=== PATIENT | female | born 1935 | race Caucasian/White ===

== ENCOUNTER 2018-12-31 08:15 | Inpatient (IN) | payer OTHER ==
[2018-12-25 14:48] VITALS: BMI 30.2
--- NOTE | 2018-12-31 07:28 | HP ---
History & Physical Update - History History: No Change - Physical Physical: No Change - Assessment Assessment: No Change - Plan Plan: No Change (Initial H&P is located in patient's paper chart. No new medications or complaints. Here today for elective L4/5 TLIF. (LBP with LLE neurogenic claudication))
[2018-12-31] MEDS ORDERED: CEFAZOLIN 2 GM/D5W 2 GM/50 ML ML IVPB ONE (09:35)
[2018-12-31] MEDS ORDERED: GABAPENTIN 300 MG CAPSULE (FP) PO STA (09:35)
[2018-12-31] MEDS ORDERED: oxyCODONE HCL 10 MG SUSTAINED ACTING TABLET PO STA (09:35)
[2018-12-31] MEDS ORDERED: GABAPENTIN 300 MG CAPSULE (FP) ONE (11:06)
[2018-12-31] MEDS ORDERED: THROMBIN (BOVINE) 5,000 UNIT VIAL TP ONE ×2 (11:29→14:01)
[2018-12-31] MEDS ORDERED: MIDAZOLAM HCL 2 MG/2 ML SINGLE DOSE VIAL ONE (12:23)
[2018-12-31] MEDS ORDERED: BUPIVACAINE HCL/PF 0.5% (5MG/ML) 10 ML VIAL ONE (12:57)
[2018-12-31] MEDS ORDERED: ONDANSETRON 4 MG/2 ML VIAL ONE ×2 (13:03→16:21)
[2018-12-31] MEDS ORDERED: SODIUM CHLORIDE 0.9% P/F 10 ML VIAL IJ ONE (13:03)
[2018-12-31] MEDS ORDERED: DEXAMETHASONE SOD PHOSPHATE 4 MG/1 ML VIAL ONE (13:03)
[2018-12-31] MEDS ORDERED: ceFAZolin SODIUM 1 GM VIAL ONE (13:03)
[2018-12-31] MEDS ORDERED: GELATIN SPONGE,ABSORBABLE 1 GM PACKET TP ONE (14:02)
[2018-12-31] MEDS ORDERED: ONDANSETRON 4 MG/2 ML VIAL IVPUSH PRN ×2 (15:02→16:01)
[2018-12-31] MEDS ORDERED: PROMETHAZINE HCL 25 MG/1 ML VIAL IVPUSH PRN (15:02)
--- NOTE | 2018-12-31 16:00 | OP ---
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
[2018-12-31] MEDS ORDERED: ACETAMINOPHEN 1000 MG/100 ML VIAL (NON FORMULARY) IVPB PRN (16:01)
--- NOTE | 2018-12-31 16:01 | SURG ---
Surgery Energy Project Engineer Note Energy Project Engineer: Rob Hinson PA-C Date of Service: 12/31/18 Diagnosis: L4/5 Spondylolithesis with radiculopathy Procedure: L4/5 Transforaminal lumbar interbody fusion / decompression / instrumentation, allograft implant, neuromonitoring I was present for the entirety of the operative procedure. For further detail, please refer to operative report. Visit type - Case Type Case Type: Scheduled - New patient This patient is new to me today: Yes Date on this admission: 12/31/18
[2018-12-31] MEDS ORDERED: ACETIC ACID 2% OTIC SOLN 15ML BOTTLE AD PRN (16:04)
--- NOTE | 2018-12-31 16:33 | OP ---
DATE OF OPERATION: 12/31/2018 PREOPERATIVE DIAGNOSES: Spondylolisthesis, L4-L5. Spinal stenosis, L4-L5. POSTOPERATIVE DIAGNOSES: Spondylolisthesis, L4-L5. Spinal stenosis, L4-L5. PROCEDURES PERFORMED: Transforaminal lumbar interbody fusion, L4-L5. Placement of instrumentation at L4-L5. Placement of a prosthetic cage. SURGEON: Zacarias Mc MD ACCOUNT TECHNICIAN: AARON Villafana ESTIMATED BLOOD LOSS: 50 mL. INTRAVENOUS FLUIDS: Per Anesthesia. ANESTHESIA: Spinal/TLIP. COMPLICATIONS: None. DISPOSITION: Patient brought to the PACU in stable condition. INDICATIONS FOR SURGERY: The patient is an 83-year-old female who has been suffering from pain from her back down the leg. X-rays and MRI were completed which noted that she has spinal stenosis at L4-L5 secondary to spondylolisthesis. She had gone through an exhaustive course of treatment for this, which included medications, physical therapy, as well as injections. Unfortunately, her pain continued to persist despite all this. At this point, the risks, benefits, and alternatives were discussed and the patient consented to surgery. OPERATIVE NOTE: The patient was brought to the operating room by the Anesthesia staff. After appropriate patient identification was performed, spinal anesthesia was given. A TLIP block was also given. The patient was able to position himself prone onto the Eliu frame with all areas of bony prominences well added at this time. The C-arm was brought in. The L4-L5 pedicles were marked out. Her back was prepped and draped in a sterile manner. At this point, a timeout was completed. An incision was made from the top of L4 down to the bottom of L5. Dissection was carried down to the fascia. The fascia was then split open at this time. Under C-arm guidance, trocars were advanced into both the L4-L5 pedicles. Through the trocars, a wire was inserted. Over the wire, tap was performed and screws inserted on the left-hand side. Retractor blades were then set up to expose the L4-5 facet. The facet joint was removed. The disk was entered. Using a series of pituitaries, Kerrisons and curettes, a discectomy was completed. The endpiece was decorticated at this time. Bone graft was laid down. A size 14 cage filled with bone graft was placed in. Tulip heads were placed on the screws. The julius was placed in. Caps and compression was applied. On the right-hand side, Julius was measured and placed in, the caps were placed. Compression was applied. AP and lateral x-rays confirmed the instrumentation to be in good position. The fascia was closed using a number-1 Vicryl suture. A drain was placed. Subcutaneous tissues were closed with 2-0 Vicryl suture. Skin was closed with 3 -0 Monocryl suture. Dermabond was applied. Steri-Strips were applied. A sterile dressing was applied. The patient was placed supine on the OR bed and brought to the PACU in stable condition. Chyna PARKER/[id number] MTDD
[2018-12-31 16:58] LABS: HEMATOCRIT 42.8 % (32.4-45.2); HEMOGLOBIN 14.1 GM/dl (10.7-15.3); MCH 30.5 pg (25.7-33.7); MEAN CELL VOLUME 92.3 fl (80-96); MEAN PLT VOLUME 9.7 fl (7.5-11.1); PLATELET COUNT 188 K/MM3 (134-434); RBC 4.64 M/mm3 (3.60-5.2); RDW 12.3 % (11.6-15.6); WHITE BLOOD COUNT 8.6 K/mm3 (4.0-10.8)
[2018-12-31] MEDS: LACTATED RINGERS SOLUTION 1,000 ML IV SCH (17:39)
[2018-12-31] MEDS: GABAPENTIN 300 MG CAPSULE (FP) PO SCH ×2 (17:40→21:36)
[2018-12-31] MEDS: ACETAMINOPHEN 325 MG TABLET (FP) PO SCH ×2 (17:41→21:36)
[2018-12-31] MEDS: CEFAZOLIN 1 GM/D5W 1 GM/50 ML BAG IVPB SCH (18:26)
[2018-12-31] MEDS: oxyCODONE HCL 5 MG TABLET PO PRN (20:01)
[2018-12-31] MEDS: ATORVASTATIN CA 40 MG TABLET (FP) PO SCH (21:36)
[2019-01-01] MEDS: CEFAZOLIN 1 GM/D5W 1 GM/50 ML BAG IVPB SCH ×2 (01:36→10:00)
[2019-01-01] MEDS: oxyCODONE HCL 5 MG TABLET PO PRN ×3 (01:43→19:50)
[2019-01-01] MEDS: ACETAMINOPHEN 325 MG TABLET (FP) PO SCH ×3 (04:30→17:56)
[2019-01-01] MEDS: GABAPENTIN 300 MG CAPSULE (FP) PO SCH ×3 (06:16→21:14)
[2019-01-01] MEDS: GLIMEPIRIDE 1 MG TABLET (FP) PO SCH (06:23)
[2019-01-01 07:26] LABS: HEMATOCRIT 40.3 % (32.4-45.2); HEMOGLOBIN 13.4 GM/dl (10.7-15.3); MCH 30.9 pg (25.7-33.7); MCHC 33.1 g/dl (32.0-36.0); MEAN CELL VOLUME 93.3 fl (80-96); MEAN PLT VOLUME 9.3 fl (7.5-11.1); PLATELET COUNT 183 K/MM3 (134-434); RBC 4.32 M/mm3 (3.60-5.2); RDW 12.1 % (11.6-15.6); WHITE BLOOD COUNT 12.6 K/mm3 (4.0-10.8)
[2019-01-01 07:36] LABS: ANION GAP 7 MMOL/L (8-16); BLOOD UREA NITROGEN 18 mg/dl (7-18); CALCIUM 8.6 mg/dl (8.5-10); CHLORIDE 101 mmol/L (98-107); CO2 28 mmol/L (21-32); CREATININE 0.8 mg/dl (0.55-1.3); GLUCOSE,RANDOM 177 mg/dl (74-106); POTASSIUM 4.3 mmol/L (3.5-5.1); SODIUM 136 mmol/L (136-145)
--- NOTE | 2019-01-01 08:17 | PN ---
Addendum entered and electronically signed by Rob Hinson PA 01/01/19 10:26: Per Dr. Mc, make patient NPO. Plans on taking patient back to OR today for revision of malpositioned hardware based upon CT findings. Original Note: Progress Note (short form) - Note Progress Note: POD #1 Alert. Sitting in chair at bedside. Patient's RN informs me that patient had a difficult time last night s/p surgery. Attempted to ambulate with walker but couldn't as she felt like her left leg was buckling. Daughter present and acted as interpreter for the deaf. Daughter confirmed what the RN stated. C/o a lot of pain to LLE. However, the numbness/tingling she was having prior too surgery is now gone. Denies n/v/f/c, CP, palpitations, SOB, LOZANO. Last Vital Signs Temp Pulse Resp BP Pulse Ox 97.8 F 78 18 122/73 95 01/01/19 06:00 01/01/19 06:00 01/01/19 06:00 01/01/19 06:00 01/01/19 06:54 CBC, BMP 01/01/19 07:10 01/01/19 07:10 Gen:alert. nad. Back: Dressing c/d/i. Hemovac 20mL (serosanguinous). Neuro: RLE unremarkable. LLE dorsi flex 4/5, plantar exten 4/5. Warm. Palpable DP/PT. SCDs bilat. Soft. NT. <Rob Hinson - Last Filed: 01/01/19 08:17> - Note Progress Note: Patient seen and examined Agree with above Patient noted to have pain in left leg along with weakness CT scan confirms medial placement of left L4 screw I had a long discussion with patient and daughter I recommended revision of hardware Patient and family in agreement. <Zacarias Mc - Last Filed: 01/02/19 09:18> Problem List - Problems (1) Spondylolisthesis at L4-L5 level Assessment/Plan: POD #1 s/p L4/5 TLIF/allograft implant/neuromonitoring under spinal anesthesia. C/o LLE pain and buckling while attempting to ambulate. f/u Lumbar CT scan Regular Diet Physical Therapy Pain Management Monitor/record hemovac ouput q shift Depending on PT eval, may need Rehab placement dc Patient not cleared for dc at this time Above plan discussed with Dr. Mc and agrees. Code(s): M43.16 - SPONDYLOLISTHESIS, LUMBAR REGION <Rob Hinson - Last Filed: 01/01/19 08:17>
[2019-01-01] MEDS ORDERED: PT OWN MED DRAWER 7, Y5N ONE (09:47)
[2019-01-01] MEDS: TRIAMTERENE AND HCTZ - 37.5 MG/25 MG CAPSULE PO SCH (09:54)
[2019-01-01] MEDS: PANTOPRAZOLE 20 MG TABLET (FP) PO SCH (09:55)
[2019-01-01] MEDS ORDERED: THROMBIN (BOVINE) 5,000 UNIT VIAL TP ONE (14:04)
[2019-01-01] MEDS ORDERED: ceFAZolin SODIUM 1 GM VIAL ONE (14:05)
[2019-01-01] MEDS ORDERED: ROCURONIUM BROMIDE 50 MG/5 ML VIAL ONE (14:05)
[2019-01-01] MEDS ORDERED: DEXAMETHASONE SOD PHOSPHATE 4 MG/1 ML VIAL ONE (14:05)
[2019-01-01] MEDS ORDERED: LIDOCAINE HCL/PF 2% SDV 5ML VIAL ONE (14:05)
[2019-01-01] MEDS ORDERED: SODIUM CHLORIDE 0.9% P/F 10 ML VIAL IJ ONE (14:05)
[2019-01-01] MEDS ORDERED: ONDANSETRON 4 MG/2 ML VIAL ONE (14:05)
[2019-01-01] MEDS ORDERED: PROPOFOL 20 ML ONE (14:07)
[2019-01-01] MEDS ORDERED: KETAMINE HCL 200 MG/20 ML VIAL ONE (14:50)
[2019-01-01] MEDS ORDERED: HYDROmorphone HCL CARPU-JECT 1 MG/1 ML DISP.SYRIN IVPUSH PRN (14:53)
[2019-01-01] MEDS ORDERED: ONDANSETRON 4 MG/2 ML VIAL IVPUSH PRN (14:53)
[2019-01-01] MEDS ORDERED: oxyCODONE HCL 5 MG TABLET PO PRN ×2 (14:53)
[2019-01-01] MEDS ORDERED: LIDOCAINE HCL/EPINEPHRINE/PF 20 ML VIAL ONE (15:28)
[2019-01-01] MEDS ORDERED: LIDOCAINE 1%/EPI 1:100000 (20 ML MULTI DOSE VIAL) ONE (15:28)
[2019-01-01] MEDS ORDERED: BACITRACIN 15 GM TUBE TOPICAL OINTMENT ONE (15:47)
[2019-01-01] MEDS ORDERED: LIDOCAINE 1%/EPI 1:100000 (50 ML MULTI DOSE VIAL) INF ONE (15:50)
[2019-01-01] MEDS ORDERED: NEOSTIGMINE METHYLSULFATE 0.5 MG/ML - 10 ML MDV ONE (16:07)
[2019-01-01] MEDS ORDERED: GLYCOPYRROLATE 0.2 MG/1 ML VIAL ONE (16:09)
[2019-01-01] MEDS ORDERED: DESFLURANE GAS 240 ML BOTTLE IH ONE (16:25)
--- NOTE | 2019-01-01 17:05 | OP ---
Operative Note - Note: Operative Date: 01/01/19 Pre-Operative Diagnosis: Malpositioned Left L4 pedicle screw Operation: Revision of left L4 pedicle screw Post-Operative Diagnosis: Same as Pre-op Surgeon: Zacarias Mc Morphologist: Rob Hinson Anesthesiologist/CASTING MACHINE SET UP OPERATOR: Vidhya Gonzalez Anesthesia: General Estimated Blood Loss (mls): 10 Fluid Volume Replaced (mls): 600 Operative Report Dictated: Yes
--- NOTE | 2019-01-01 17:06 | SURG ---
Surgery Developing Machine Operator Note Developing Machine Operator: Rob Hinson PA-C Date of Service: 01/01/19 Diagnosis: Malpositioned left L4 pedicle screw Procedure: Revision of left L4 pedicle screw I was present for the entirety of the operative procedure. For further detail, please refer to operative report.
[2019-01-01] MEDS ORDERED: HYDROmorphone HCL CARPU-JECT 2 MG/1 ML DISP.SYRIN ONE (17:16)
[2019-01-01] MEDS: LACTATED RINGERS SOLUTION 1,000 ML IV SCH (17:56)
[2019-01-01] MEDS: ATORVASTATIN CA 40 MG TABLET (FP) PO SCH (21:13)
[2019-01-02] MEDS: oxyCODONE HCL 5 MG TABLET PO PRN ×4 (01:18→22:00)
[2019-01-02] MEDS: diazePAM 2 MG TABLET PO PRN ×2 (01:28→14:10)
[2019-01-02] MEDS: ACETAMINOPHEN 325 MG TABLET (FP) PO SCH ×4 (05:25→22:01)
[2019-01-02] MEDS: GLIMEPIRIDE 1 MG TABLET (FP) PO SCH (06:43)
[2019-01-02] MEDS: GABAPENTIN 300 MG CAPSULE (FP) PO SCH ×3 (06:43→22:01)
--- NOTE | 2019-01-02 09:20 | PN ---
Progress Note (short form) - Note Progress Note: Patient comfortable this morning Patient was able to ambulate with my assistance along with a walker Patient has 4/5 strength in her left DF and EHl 5/5 strength in her PF Patient will be seen by PT today May consider rehab placement Friday
[2019-01-02] MEDS: TRIAMTERENE AND HCTZ - 37.5 MG/25 MG CAPSULE PO SCH (10:06)
[2019-01-02] MEDS: PANTOPRAZOLE 20 MG TABLET (FP) PO SCH (10:06)
--- NOTE | 2019-01-02 10:54 | OP ---
DATE OF OPERATION: 01/01/2019 PREOPERATIVE DIAGNOSIS: Malpositioned hardware. POSTOPERATIVE DIAGNOSIS: Malpositioned hardware. PROCEDURE: Revision of hardware. SURGEON: Zacarias Mc MD NURSE ADMINISTRATOR: AARON Villafana ESTIMATED BLOOD LOSS: 50 mL. INTRAVENOUS FLUIDS: Per Anesthesia. ANESTHESIA: General. COMPLICATIONS: None. DISPOSITION: Patient brought to PACU in stable condition. INDICATION FOR SURGERY: The patient is an 83-year-old female who has been suffering from pain from her back down the left leg. We had done a TLIF on her on . On Friday morning she had woken up with left lower extremity pain. We ordered a CAT scan which showed that her left L4 screw was positioned medially. She had 4/5 strength in her left lower extremity. I had a discussion with the family regarding this screw, and I told her that because of the pain and weakness I would recommend taking her back to the operating room to reposition the screw. The patient understood that and consented to surgery. OPERATIVE NOTE: The patient was brought to the operating room by the anesthesia staff. After appropriate patient identification, general anesthesia was given. Patient was placed prone onto the Eliu frame. All areas of bony prominences were well padded at this time. Her back was prepped and draped in a sterile manner. The left-sided incision was opened up. The screw and lee were exposed. Cap was removed, lee was removed. Left L4 screw was removed. Under C-arm guidance, the left L4 screw was placed in using a trocar, wire, tap, and screw. Multiple images were taken with the C-arm to confirm position of the screw. Once the screw was placed, the lee was measured, placed in. Cap was replaced. Compression and final tightening were performed. AP and lateral x-rays confirmed instrumentation to be in good position. All bleeding was well controlled at this time. Fascia was closed with No. 1 Vicryl suture, subcutaneous tissue was closed with 2-0 Vicryl, and skin incision was closed with 3-0 Monocryl. Dermabond was applied. Steri-Strips were applied. Sterile dressing was applied. Patient was placed supine on OR bed, extubated in the OR and brought to the PACU in stable condition. ZACARIAS MC M.D. BARRETT/[id number]
[2019-01-02] MEDS: ATORVASTATIN CA 40 MG TABLET (FP) PO SCH (22:01)
[2019-01-03] MEDS: diazePAM 2 MG TABLET PO PRN ×2 (01:11→15:02)
[2019-01-03] MEDS: ACETAMINOPHEN 325 MG TABLET (FP) PO SCH ×5 (04:42→23:13)
[2019-01-03] MEDS: GABAPENTIN 300 MG CAPSULE (FP) PO SCH ×3 (06:56→21:20)
[2019-01-03] MEDS: oxyCODONE HCL 5 MG TABLET PO PRN ×4 (06:56→23:02)
[2019-01-03] MEDS: GLIMEPIRIDE 1 MG TABLET (FP) PO SCH (06:56)
[2019-01-03] MEDS: MAGNESIUM HYDROX 2400MG/30ML ORAL SUSPENSION 30 ML CUP PO PRN (10:00)
[2019-01-03] MEDS: PANTOPRAZOLE 20 MG TABLET (FP) PO SCH (10:05)
[2019-01-03] MEDS: TRIAMTERENE AND HCTZ - 37.5 MG/25 MG CAPSULE PO SCH (10:15)
[2019-01-03] MEDS ORDERED: oxyCODONE HCL 5 MG TABLET PO PRN (17:04)
--- NOTE | 2019-01-03 20:28 | PN ---
Progress Note (short form) - Note Progress Note: Patient is comfortable today Still c/o pain in left leg although decreased when compared to POD#1 4/5 strength in left DF and EHL Cont ambulation D/C Planning to rehab
[2019-01-03] MEDS ORDERED: diazePAM 2 MG TABLET PO PRN (21:12)
[2019-01-03] MEDS: ATORVASTATIN CA 40 MG TABLET (FP) PO SCH (21:20)
[2019-01-03] MEDS: KETOROLAC TROMETHAMINE 15 MG/ML VIAL IVPUSH PRN (21:20)
[2019-01-03] MEDS: SENNOSIDES/DOCUSATE COMBO (SENNA PLUS) TABLET (UD) PO SCH (21:20)
[2019-01-04] MEDS: oxyCODONE HCL 5 MG TABLET PO PRN (03:05)
[2019-01-04] MEDS: ACETAMINOPHEN 325 MG TABLET (FP) PO SCH ×2 (05:44→10:20)
[2019-01-04] MEDS: GABAPENTIN 300 MG CAPSULE (FP) PO SCH ×2 (05:45→14:04)
[2019-01-04] MEDS: KETOROLAC TROMETHAMINE 15 MG/ML VIAL IVPUSH PRN (05:45)
[2019-01-04] MEDS: GLIMEPIRIDE 1 MG TABLET (FP) PO SCH (06:26)
--- NOTE | 2019-01-04 08:01 | DS ---
"Physical Exam: SUBJECTIVE: Patient seen and examined this am. No CP/SOB, voiding without difficulty. Poor appetite. Complains of constipation. OBJECTIVE: Vital Signs Period Temp Pulse Resp BP Sys/Rodriguez Pulse Ox Last 24 Hr 98.0 F-99.2 F 78-92 18-22 135-156/58-82 94-97 PHYSICAL EXAM GENERAL: The patient is awake, alert, and fully oriented, in no acute distress. LUNGS: Breath sounds equal, clear to auscultation bilaterally, no wheezes, no crackles, no accessory muscle use. HEART: Regular rate and rhythm. ABDOMEN: Soft, nontender, nondistended BACK: Dressing changed. Inc c/d/i with steri-strips. No bulging, drainage or erythema noted. Mild ecchymosis. Replaced dressing with new 4x4 gauze/tegaderm. EXTREMITIES: 2+ pulses, warm, well-perfused, no edema. non-tender to lower extremities. NEUROLOGICAL: Normal speech, gait somewhat unsteady with ambulatory walker. 3/5 left dorsiflexion. 5/5 left plantar flexion. Right 5/5 dorsi/plantar flexion. PSYCH: Normal mood, normal affect. LABS Laboratory Results - last 24 hr 01/04/19 05:58 POC Glucometer 175 HOSPITAL COURSE: Date of Admission:12/31/18 The patient was admitted to the Med-Surg Unit after an elective repair of their lumbar spondylolisthesis. Now, s/p TLIF L4-5(12/31) with revision of left L4 screw(01/01). POD # 1 from TLIF the patient had pain and difficulty ambulating. A CT scan was completed which revealed the left L4 screw in the left lateral aspect of the spinal canal. The patient returned to the OR for a revision of her left L4 screw. An xray was obtained and confirmed hardware placement at L4-5 , no fractures or dislocations. Saida-operative IV ABX were administered. DVT prophylaxis was achieved with SCDs and early ambulation. The patient ambulated with Physical Therapy and services for rehab were recommended. Above plan discussed with Dr. Mc and agreed, the patient was also seen by Dr. Mc at day of discharge. Date of Discharge: 01/04/19 Minutes to complete discharge: 20 Discharge Summary Reason For Visit: SPONDYLOLISTHESIS Current Active Problems Spondylolisthesis at L4-L5 level (Acute) Condition: Stable - Instructions Diet, Activity, Other Instructions: Post Operative Instructions - Dr Mc Diet: You may resume your regular diet. We recommend eating plenty of fiber rich foods to prevent constipation, which can be caused by taking narcotic pain medications. You may also use a stool softener such as DulcoEase. We recommend drinking plenty of water unless you are on fluid restrictions for another medical condition. If you are a diabetic, make sure to keep your glucose well controlled as elevated glucose levels promote infection. Medications: You may resume your previous medications unless otherwise instructed by your surgeon, primary care doctor or sofa back upholsterer. You have been prescribed a Narcotic pain medication. Driving or drinking alcohol is PROHIBITED while taking narcotic pain medication, as is operating any heavy machinery. Activity: No bending and or twisting at the waist. No lifting greater than [address] until seen in the office for your first post-operative visit. You may be a passenger for a short time (20-30 minutes) until you are able to tolerate longer distances. Wound Care: Keep area clean and dry. May remove dressing in two (2) days and replace with clean gauze and occlusive dressing such as a tegaderm. NO BATHS. You may shower starting two (2) days after your surgery. When showering, leave the occlusive(plastic) dressing in place and change if it appears wet. Avoid direct water stream onto your incision. General Recommendations: If sitting, use only a straight back chair to ensure proper support, not to exceed a half hour at a time. Lie only on a firm mattress, no couches or recliner chairs. You may lie on your back or side, but not on your abdomen. * Absolutely no bending, stooping, pushing, lifting or straining. * Avoid housework, especially vacuuming or sweeping. * OK to cook, as long as you are not lifting anything heavier than 5 pounds. * Use proper body mechanics to maintain a neutral spine position. * Increasing pain is a red flag telling you to rest. Call your surgeon or report to the ED if you develop: Fevers over 101.5 Chest pain, trouble breathing, calf pain Drainage from the incision (yellow/green, foul smelling) Follow-up Call surgeon's office to schedule your follow-up appointment in two weeks. Referred to following clinics/specialists for follow-up care: Zacarias Mc MD [facility] [address], [address] [place] [address] [phone] [facility] [employer] checked prior too escribe of narcotics for pain management. This report was requested by: Rob Hinson | Reference #: [id number] Disposition: HOME - Home Medications Comprehensive Discharge Medication List: Ambulatory Orders Acetic Acid 2% Otic Soln [Vosol 2% Ear Drops -] 2 drop .ROUTE Q4H PRN 12/25/18 Atorvastatin Ca [Lipitor] 40 mg PO HS 12/25/18 Gabapentin [Neurontin -] 300 mg PO Q8H 12/25/18 Glimepiride 1 each PO DAILY 12/25/18 Pantoprazole Sodium [Protonix -] 20 mg PO DAILY 12/25/18 Triamterene/Hydrochlorothiazid [Triamterene-Hctz 37.5-25 mg Tb] 1 each PO DAILY 12/31/18 This patient is new to me today: Yes Date on this admission: 01/04/19 Emergency Visit: No Critical Care patient: No - Discharge Referral Referred to [facility] No"
[2019-01-04] MEDS ORDERED: BISACODYL 10 MG SUPP.RECT RC PRN (08:02)
[2019-01-04] MEDS ORDERED: PT OWN MED DRAWER 7, Y5N ONE (09:50)
[2019-01-04] MEDS: TRIAMTERENE AND HCTZ - 37.5 MG/25 MG CAPSULE PO SCH (10:00)
[2019-01-04] MEDS: SENNOSIDES/DOCUSATE COMBO (SENNA PLUS) TABLET (UD) PO SCH (10:05)
[2019-01-04] MEDS: PANTOPRAZOLE 20 MG TABLET (FP) PO SCH (10:15)
[2019-01-04 10:21] VITALS: PULSE 82
--- NOTE | 2019-01-04 10:37 | PN ---
Progress Note (short form) - Note Progress Note: Patient is comfortable this AM States that her leg pain has improved Still has 4/5 strength in her left foot Able to ambulate more D/C Planning to rehab
[2019-01-04] MEDS ORDERED: traMADol HCL 50 MG TABLET PO SCH (13:00)
[2019-01-04] MEDS: MAGNESIUM HYDROX 2400MG/30ML ORAL SUSPENSION 30 ML CUP PO PRN (14:00)
[2019-01-04 14:52] VITALS: BP 164/65; TEMP 98.4
== END 2019-01-04 15:18 | DRG 454 ==
LOC: EDSTATUS 08:15 → FM/S 09:04
PROVIDERS: ADMIT Orthopaedic Surgery Orthopaedic Surgery of the Spine; ATTEND Orthopaedic Surgery Orthopaedic Surgery of the Spine
PROC: 0SG00J1 Fusion of Lumbar Vertebral Joint with Synthetic Substitute, Posterior Approach, Posterior Column, Open Approach (ICD-10-PCS; 2018-12-31)
PROC: 0SB20ZZ Excision of Lumbar Vertebral Disc, Open Approach (ICD-10-PCS; 2018-12-31)
PROC: 0SG00AJ Fusion of Lumbar Vertebral Joint with Interbody Fusion Device, Posterior Approach, Anterior Column, Open Approach (ICD-10-PCS; 2018-12-31)
PROC: 0QU007Z Supplement Lumbar Vertebra with Autologous Tissue Substitute, Open Approach (ICD-10-PCS; 2018-12-31)
PROC: 0QU00KZ Supplement Lumbar Vertebra with Nonautologous Tissue Substitute, Open Approach (ICD-10-PCS; 2018-12-31)
PROC: 0SG00AJ Fusion of Lumbar Vertebral Joint with Interbody Fusion Device, Posterior Approach, Anterior Column, Open Approach (ICD-10-PCS; principal; 2018-12-31 13:56)
PROC: 0QW004Z Revision of Internal Fixation Device in Lumbar Vertebra, Open Approach (ICD-10-PCS; 2019-01-01)
DX: M48.062 Spinal stenosis, lumbar region with neurogenic claudication (principal); T84.226A Displacement of internal fixation device of vertebrae, initial encounter; M43.16 Spondylolisthesis, lumbar region; M54.16 Radiculopathy, lumbar region; Y83.8 Other surgical procedures as the cause of abnormal reaction of the patient, or of later complication, without mention of misadventure at the time of the procedure; Y92.234 Operating room of hospital as the place of occurrence of the external cause
CPT/HCPCS: 36415; 72100-TC-FY; 72131-TC; 80048; 82962; 85027; 94760; 97116-GP; 97161-GP; J0131

== ENCOUNTER 2019-01-07 15:55 | Inpatient (IN) | payer OTHER ==
--- NOTE | 2019-01-07 16:08 | PDOC ---
Attending Attestation - HPI HPI: 01/07/19 18:20 The patient is an 83 year old female, with a significant PMH of HLD, GERD, DM, and recent spinal surgery who presents to the emergency department, [facility] from [facility], for evaluation of back pain that radiates down the left lower extremity. The patient states she had spinal surgery about one week ago and since has had back pain which is a 10/10 in severity. Patients daughter states the patient has not been able to ambulate as her legs are in pain and they feel weak. Patient was advised to come in by spinal surgeon testing and pain control. The patient denies chest pain, shortness of breath, headache and dizziness. Denies fever, chills, nausea, vomit, diarrhea and constipation. Denies dysuria, frequency, urgency and hematuria. Allergies: NKA PCP: Dr. Chavarria - Physicial Exam PE: 01/07/19 18:20 GENERAL: Alert and oriented x3, in no acute distress HEAD: No signs of trauma EYES: PERRLA, EOMI, sclera anicteric, conjunctiva clear ENT: Auricles normal inspection, hearing grossly normal, nares patent, oropharynx clear without exudates. Moist mucosa NECK: Normal ROM, supple, no lymphadenopathy, JVD, or masses LUNGS: Breath sounds equal, clear to auscultation bilaterally. No wheezes, and no crackles HEART: Regular rate and rhythm, normal S1 and S2, no murmurs, rubs or gallops EXTREMITIES: Normal range of motion, no edema. No clubbing or cyanosis. No cords, erythema, or tenderness NEUROLOGICAL: Intact, 5/5 strength, knee flexion, plantar flexion, and great to extension. Cranial nerves II through XII grossly intact. Normal speech. SKIN: Warm, Dry, normal turgor, no rashes or lesions noted. <Shanae Montes - Last Filed: 01/07/19 18:20> - Resident Resident Name: Shanique Urrutia - Medical Decision Making 01/09/19 20:50 Pt presents to the ED complaining of persistent pain since spinal fusion one week ago. Pain is unchanged, but it was severe and resistant to pain control in rehab so she was sent to the ED. No neurologic symptoms. Case discussed with Dr. Hanna who requests CT lumbar spine and admission for pain control. 01/09/19 20:55 <Sherron Stephens - Last Filed: 01/09/19 20:55> Attestations - Attestations 01/07/19 18:21 Documentation prepared by Shanae Montes, acting as bio medical technician for Sherron Stephens MD. <Shanae Montes - Last Filed: 01/07/19 18:20>
--- NOTE | 2019-01-07 16:09 | PDOC ---
History of Present Illness - General Chief Complaint: Back Pain Stated Complaint: BACK PAIN Time Seen by Provider: 01/07/19 16:07 History Source: Patient, EMS, Family Exam Limitations: No Limitations - History of Present Illness Initial Comments: 01/07/19 16:07 83 year old female with PMH HLD, GERD, DM, recent spinal surgery, BIBA from [facility] to ED for increasing back pain radiating down left leg. Pt sent by neurosurgeon for pain control and MRI. Pt stated since her surgeries x1 week ago, she has had 10/10 back pain preventing her from ambulating and preventing her from getting out of bed to urinate. She stated she has urinated on herself because she cannot get out of bed in time to go, not because she cannot control her bladder. Pt denied weakness, numbness, tingling, chest pain, shortness of breath, cough, or any other complaints. Allergies: NKDA PCP: Dr. Emmanuel Chavarria Past History - Past Medical History Allergies/Adverse Reactions: Allergies Allergy/AdvReac Type Severity Reaction Status Date / Time No Known Allergies Allergy Verified 01/07/19 15:57 Home Medications: Ambulatory Orders Gabapentin [Neurontin -] 300 mg PO BID 12/25/18 Glimepiride 1 each PO DAILY 12/25/18 Triamterene/Hydrochlorothiazid [Triamterene-Hctz 37.5-25 mg Tb] 1 each PO DAILY 12/31/18 Acetaminophen [Tylenol .Regular Strength -] 650 mg PO Q8H PRN 01/07/19 Gabapentin 600 mg PO HS 01/07/19 Morphine *Sr* [Ms Contin -] 15 mg PO Q12H 01/07/19 Omeprazole Magnesium [Prilosec Otc] 20 mg PO DAILY 01/07/19 Oxycodone HCl 10 mg PO Q6H PRN 01/07/19 Oxycodone HCl 10 mg PO TID 01/07/19 Anemia: No Asthma: No Cancer: No Cardiac Disorders: No CVA: No COPD: No CHF: No Dementia: No Diabetes: Yes GI Disorders: No Disorders: No HTN: Yes Hypercholesterolemia: Yes Liver Disease: No Seizures: No Thyroid Disease: No - Surgical History Abdominal Surgery: No Appendectomy: Yes Cardiac Surgery: No Cholecystectomy: Yes Lung Surgery: No Neurologic Surgery: No Orthopedic Surgery: No - Suicide/Smoking/Psychosocial Hx Smoking History: Current every day smoker Have you smoked in the past 12 months: Yes Number of Cigarettes Smoked Daily: 6 Hx Alcohol Use: No Drug/Substance Use Hx: No Substance Use Type: None Hx Substance Use Treatment: No Review of Systems - Review of Systems Able to Perform ROS?: Yes Comments:: 01/07/19 16:08 General: denied fever, chills, night sweats, generalized weakness. HEENT: denied sore throat, rhinorrhea, ear pain. Heart: denied chest pain, palpitations, syncope, diaphoresis. Respiratory: denied shortness of breath, cough, sputum production, hemoptysis. Abdomen: denied abdominal pain, nausea, vomiting, diarrhea, constipation, blood in stool. : denied dysuria, increased urinary frequency, hematuria, urinary incontinence , flank pain. Back: admitted to back pain. Musculoskeletal: denied joint pain, muscle pain, joint swelling. Neurological: denied headache, dizziness, numbness, tingling, weakness. Skin: denied rash, laceration, abrasion. *Physical Exam - Physical Exam Comments: 01/07/19 16:08 Constitutional: Well-nourished, Well-developed, appearing stated age. HEENT: head is normocephalic, atraumatic. EOMI. PERRLA. Neck: supple. Full ROM. Heart: regular rhythm. no murmurs, rubs or gallops. Lungs: clear to auscultation bilaterally. no crackles, rhonchi or wheezing. no stridor. Abdomen: soft, nontender. normal bowel sounds. no rebound, guarding, masses. Extremities: Peripheral pulses intact. No lower extremity edema. Neurological: CN 2-12 grossly intact. 5/5 strength all extremities, except 1/5 strength to LLE secondary to pain. Sensation intact and equal throughout. Psych: awake, alert, oriented x3. Follows commands. Answers questions appropriately. ED Treatment Course - LABORATORY CBC & Chemistry Diagram: 01/08/19 06:49 01/08/19 06:49 Medical Decision Making - Medical Decision Making 01/07/19 16:36 83 year old female with above PMH sent to ED by neurosurgeon Dr. Mc for back pain s/p spinal surgery x1 week ago. Initial Vital Signs Temp Pulse Resp BP Pulse Ox 99 F 95 H 18 156/87 94 L 01/07/19 15:55 01/07/19 15:55 01/07/19 15:55 01/07/19 15:55 01/07/19 15:55 Afebrile. No tachycardia. No tachypnea. Mild hypertension. No hypoxia on room air. Labs ordered: CBC, CMP, UA/UC, PT/PTT/INR, T/S Imaging ordered: CT lumbar spine noncontrast, CXR Medications ordered: decadron 10 mg IV, toradol 30 mg IV EKG performed at 1649: rate 98, regular rhythm, normal axis, normal intervals, nonspecific ST changes. 01/07/19 18:04 CBC WBC 7.6 K/mm3 (4.0-10.8) 01/07/19 17:10 RBC 4.27 M/mm3 (3.60-5.2) 01/07/19 17:10 Hgb 13.3 GM/dl (10.7-15.3) 01/07/19 17:10 Hct 39.5 % (32.4-45.2) 01/07/19 17:10 MCV 92.5 fl (80-96) 01/07/19 17:10 MCH 31.0 pg (25.7-33.7) 01/07/19 17:10 MCHC 33.6 g/dl (32.0-36.0) 01/07/19 17:10 RDW 12.2 % (11.6-15.6) 01/07/19 17:10 Plt Count 277 K/MM3 (134-434) 01/07/19 17:10 MPV 8.1 fl (7.5-11.1) 01/07/19 17:10 Absolute Neuts (auto) 4.4 K/mm3 01/07/19 17:10 Neutrophils % 58.3 % (42.8-82.8) 01/07/19 17:10 Lymphocytes % 22.0 % (8-40) 01/07/19 17:10 Monocytes % 15.4 % (3.8-10.2) H 01/07/19 17:10 Eosinophils % 2.9 % (0-4.5) 01/07/19 17:10 Basophils % 1.4 % (0-2.0) 01/07/19 17:10 CMP Sodium 134 mmol/L (136-145) L 01/07/19 17:10 Potassium 4.9 mmol/L (3.5-5.1) 01/07/19 17:10 Chloride 97 mmol/L (98-107) L 01/07/19 17:10 Carbon Dioxide 30 mmol/L (21-32) 01/07/19 17:10 Anion Gap 7 MMOL/L (8-16) L 01/07/19 17:10 BUN 14 mg/dl (7-18) 01/07/19 17:10 Creatinine 0.7 mg/dl (0.55-1.3) 01/07/19 17:10 Creat Clearance w eGFR > 60 (>60) 01/07/19 17:10 Random Glucose 170 mg/dl (74-106) H 01/07/19 17:10 Calcium 9.3 mg/dl (8.5-10) 01/07/19 17:10 Total Bilirubin 0.6 mg/dl (0.2-1) 01/07/19 17:10 AST 25 U/L (15-37) 01/07/19 17:10 ALT 27 U/L (13-61) 01/07/19 17:10 Alkaline Phosphatase 64 U/L (45-117) 01/07/19 17:10 Total Protein 6.5 g/dl (6.4-8.2) 01/07/19 17:10 Albumin 3.0 g/dl (3.4-5.0) L 01/07/19 17:10 INR, PTT INR 1.16 (0.82-1.09) 01/07/19 17:10 Urine Test Results Urine Color Yellow 01/07/19 17:00 Urine Appearance Clear 01/07/19 17:00 Urine pH 7.0 (4.5-8) 01/07/19 17:00 Ur Specific [place] 1.020 (1.010-1.035) 01/07/19 17:00 Urine Protein Negative (NEGATIVE) 01/07/19 17:00 Urine Glucose (UA) Negative (NEGATIVE) 01/07/19 17:00 Urine Ketones Negative (NEGATIVE) 01/07/19 17:00 Urine Blood Negative (NEGATIVE) 01/07/19 17:00 Urine Nitrite Negative (NEGATIVE) 01/07/19 17:00 Urine Bilirubin Negative (NEGATIVE) 01/07/19 17:00 Ur Leukocyte Esterase Negative (NEGATIVE) 01/07/19 17:[address] lumbar spine report. 01/07/19 18:11 Pt reporting pain. Medications ordered: IV tylenol 01/07/19 18:12 CXR report: large heart. sclerotic knob. prominent adriana. minimal atelectic changes at the left base. sharp angles. no acute process seen. 01/08/19 07:55 CT lumbar spine report: interval development of small amount of air/gas at the site of a partial left L4-L5 fasectectomy - ? representing postsurgical change vs possible infection. *DC/Admit/Observation/Transfer Diagnosis at time of Disposition: Intractable back pain, History of spinal surgery - Discharge Dispostion Condition at time of disposition: Stable Decision to Admit order: Yes - Referrals - Patient Instructions - Post Discharge Activity
[2019-01-07 16:11] VITALS: BMI 30.2
[2019-01-07] MEDS ORDERED: DEXAMETHASONE SOD PHOSPHATE 10 MG/1 ML VIAL IVPUSH ONE (16:40)
[2019-01-07] MEDS ORDERED: DEXAMETHASONE SOD PHOSPHATE 10 MG/1 ML VIAL ONE (16:52)
[2019-01-07 17:21] LABS: URINE APPEARANCE Clear; URINE BILIRUBIN Negative (NEGATIVE); URINE COLOR Yellow; URINE GLUCOSE (UA) Negative (NEGATIVE); URINE KETONE Negative (NEGATIVE); URINE LEUK ESTERASE Negative (NEGATIVE); URINE NITRITE Negative (NEGATIVE); URINE PROTEIN Negative (NEGATIVE)
[2019-01-07 17:27] LABS: BASO % 1.4 % (0-2.0); EOS % 2.9 % (0-4.5); HEMATOCRIT 39.5 % (32.4-45.2); HEMOGLOBIN 13.3 GM/dl (10.7-15.3); MCHC 33.6 g/dl (32.0-36.0); MEAN CELL VOLUME 92.5 fl (80-96); MEAN PLT VOLUME 8.1 fl (7.5-11.1); MONO % 15.4 % (3.8-10.2); NEUT % 58.3 % (42.8-82.8); PLATELET COUNT 277 K/MM3 (134-434); RBC 4.27 M/mm3 (3.60-5.2); RDW 12.2 % (11.6-15.6); WHITE BLOOD COUNT 7.6 K/mm3 (4.0-10.8)
[2019-01-07 17:39] LABS: ALK PHOS 64 U/L (45-117); ANION GAP 7 MMOL/L (8-16); BILIRUBIN,TOTAL 0.6 mg/dl (0.2-1); BLOOD UREA NITROGEN 14 mg/dl (7-18); CALCIUM 9.3 mg/dl (8.5-10); CHLORIDE 97 mmol/L (98-107); CO2 30 mmol/L (21-32); CREATININE 0.7 mg/dl (0.55-1.3); GLUCOSE,RANDOM 170 mg/dl (74-106); POTASSIUM 4.9 mmol/L (3.5-5.1); SGOT/AST 25 U/L (15-37); SGPT/ALT 27 U/L (13-61); SODIUM 134 mmol/L (136-145); TOT PROT 6.5 g/dl (6.4-8.2)
[2019-01-07 17:42] LABS: INR 1.16 (0.82-1.09)
[2019-01-07] MEDS ORDERED: ACETAMINOPHEN 1000 MG/100 ML VIAL (NON FORMULARY) IVPB ONE (18:11)
[2019-01-07] MEDS ORDERED: ACETAMINOPHEN INJECTION 100 ML IVPB ONE (18:13)
[2019-01-07] MEDS ORDERED: KETOROLAC TROMETHAMINE 30 MG/1 ML VIAL IVPUSH ONE (18:34)
[2019-01-07] MEDS ORDERED: KETOROLAC TROMETHAMINE 30 MG/1 ML VIAL ONE (18:37)
--- NOTE | 2019-01-07 19:37 | PDOC ---
*Physical Exam - Vital Signs Last Vital Signs Temp Pulse Resp BP Pulse Ox 98.3 F 78 16 118/73 99 01/07/19 18:52 01/07/19 18:52 01/07/19 18:52 01/07/19 18:52 01/07/19 18:52 ED Treatment Course - LABORATORY CBC & Chemistry Diagram: 01/07/19 17:10 01/07/19 17:10 - ADDITIONAL ORDERS Additional order review: Laboratory Results 01/07/19 01/07/19 01/07/19 17:10 17:10 17:00 PT with INR 13.0 INR 1.16 PTT (Actin FS) 30.0 Sodium 134 L Potassium 4.9 Chloride 97 L Carbon Dioxide 30 Anion Gap 7 L BUN 14 Creatinine 0.7 Creat Clearance w eGFR > 60 Random Glucose 170 H Calcium 9.3 Total Bilirubin 0.6 AST 25 ALT 27 Alkaline Phosphatase 64 Total Protein 6.5 Albumin 3.0 L Urine Color Yellow Urine Appearance Clear Urine pH 7.0 Ur Specific [place] 1.020 Urine Protein Negative Urine Glucose (UA) Negative Urine Ketones Negative Urine Blood Negative Urine Nitrite Negative Urine Bilirubin Negative Urine Urobilinogen 1.0 Ur Leukocyte Esterase Negative 01/07/19 17:10 RBC 4.27 MCV 92.5 MCHC 33.6 RDW 12.2 MPV 8.1 Neutrophils % 58.3 Lymphocytes % 22.0 Monocytes % 15.4 H Eosinophils % 2.9 Basophils % 1.4 - Medications Given in the ED: ED Medications Discontinued Medications Generic Name Dose Route Start Last Admin Trade Name Andreq PRN Reason Stop Dose Admin Acetaminophen 1,000 mg 01/07/19 18:11 01/07/19 18:19 Ofirmev Injection - IVPB 01/07/19 18:12 1,000 mg ONCE ONE Administration Dexamethasone Sodium Phosphate 10 mg 01/07/19 16:40 01/07/19 17:04 Decadron Injection - IVPUSH 01/07/19 16:41 10 mg ONCE ONE Administration Ketorolac Tromethamine 30 mg 01/07/19 18:34 01/07/19 18:42 Toradol Injection - IVPUSH 01/07/19 18:35 30 mg ONCE ONE Administration Progress Note - Progress Note Progress Note: Care of this patient received from Lumbar spine CT results, interpreted by Dr. Gabriel of the radiology staff: Interval development of small amount of air/gas of the site of partial left L4 L5 facetectomy. CT results discussed with . Area in question is consistent with postoperative changes. [facility] will be admitted in observation status to [facility] service. *DC/Admit/Observation/Transfer Diagnosis at time of Disposition: Intractable back pain, History of spinal surgery - Discharge Dispostion Condition at time of disposition: Stable Decision to Admit order: Yes - Referrals - Patient Instructions - Post Discharge Activity
--- NOTE | 2019-01-07 20:30 | HP ---
CHIEF COMPLAINT: back pain radiating to left leg PCP: Deon HISTORY OF PRESENT ILLNESS: 83 year old female w/ recent spinal surgery- L4-5 01/03 with revison the next day , [facility] from [facility] to hospital for increasing back pain radiating down left leg. Pt sent by neurosurgeon for pain control and MRI. Pt stated since her surgeries she has had severe back pain w/ left leg radiation preventing her from ambulating and preventing her from getting out of bed to urinate. She denied any fevers or discharge from surgery site. ER course was notable for: (1) CT of spine (2) toradol, decadron, tylenol (3) Recent Travel: no PAST MEDICAL HISTORY: HLD, GERD, DM, PAST SURGICAL HISTORY: recent spinal zpiouek-H0-5 01/03, followed by revision the following day Social History: Smoking: no Alcohol: no Drugs: no Family History: no Allergies No Known Allergies Allergy (Verified 01/07/19 15:57) HOME MEDICATIONS: Home Medications Medication Instructions Recorded Gabapentin [Neurontin -] 300 mg PO BID 12/25/18 Glimepiride 1 each PO DAILY 12/25/18 Triamterene/Hydrochlorothiazid 1 each PO DAILY 12/31/18 [Triamterene-Hctz 37.5-25 mg Tb] Acetaminophen [Tylenol .Regular 650 mg PO Q8H PRN 01/07/19 Strength -] Gabapentin 600 mg PO HS 01/07/19 Morphine *Sr* [Ms Contin -] 15 mg PO Q12H 01/07/19 Omeprazole Magnesium [Prilosec Otc] 20 mg PO DAILY 01/07/19 Oxycodone HCl 10 mg PO Q6H PRN 01/07/19 Oxycodone HCl 10 mg PO TID 01/07/19 REVIEW OF SYSTEMS CONSTITUTIONAL: Absent: fever, chills, diaphoresis, generalized weakness, malaise, loss of appetite, weight change HEENT: Absent: rhinorrhea, nasal congestion, throat pain, throat swelling, difficulty swallowing, mouth swelling, ear pain, eye pain, visual changes CARDIOVASCULAR: Absent: chest pain, syncope, palpitations, irregular heart rate, lightheadedness , peripheral edema RESPIRATORY: Absent: cough, shortness of breath, dyspnea with exertion, orthopnea, wheezing, stridor, hemoptysis GASTROINTESTINAL: Absent: abdominal pain, abdominal distension, nausea, vomiting, diarrhea, melena , hematochezia present- constipation, GENITOURINARY: Absent: dysuria, frequency, urgency, hesitancy, hematuria, flank pain, genital pain MUSCULOSKELETAL: Absent: myalgia, arthralgia, joint swelling, neck pain present- back pain, radiation to left leg SKIN: Absent: rash, itching, pallor HEMATOLOGIC/IMMUNOLOGIC: Absent: easy bleeding, easy bruising, lymphadenopathy, frequent infections ENDOCRINE: Absent: unexplained weight gain, unexplained weight loss, heat intolerance, cold intolerance NEUROLOGIC: Absent: headache, focal weakness or paresthesias, dizziness, unsteady gait, seizure, mental status changes, bladder or bowel incontinence PSYCHIATRIC: Absent: anxiety, depression, suicidal or homicidal ideation, hallucinations. PHYSICAL EXAMINATION Vital Signs - 24 hr 01/07/19 01/07/19 15:55 18:52 Temperature 99 F 98.3 F Pulse Rate 95 H Pulse Rate [ 78 Left Apical] Respiratory 18 16 Rate Blood Pressure 156/87 Blood Pressure 118/73 [Left Arm] O2 Sat by Pulse 94 L 99 Oximetry (%) GENERAL: Awake, alert, and fully oriented, in no acute distress. HEAD: Normal with no signs of trauma. EYES: Pupils equal, round and reactive to light, extraocular movements intact, sclera anicteric, conjunctiva clear. No lid lag. EARS, NOSE, THROAT: Ears normal, nares patent, oropharynx clear without exudates. Moist mucous membranes. NECK: Normal range of motion, supple without lymphadenopathy, JVD, or masses. LUNGS: Breath sounds equal, clear to auscultation bilaterally. No wheezes, and no crackles. No accessory muscle use. HEART: Regular rate and rhythm, normal S1 and S2 without murmur, rub or gallop. ABDOMEN: Soft, nontender, not distended, normoactive bowel sounds, no guarding, no rebound, no masses. No hepatomegaly or splenomegaly. MUSCULOSKELETAL: Normal range of motion at all joints. No bony deformities or tenderness. No CVA tenderness. UPPER EXTREMITIES: 2+ pulses, warm, well-perfused. No cyanosis. No clubbing. No peripheral edema. LOWER EXTREMITIES: 2+ pulses, warm, well-perfused. No calf tenderness. No peripheral edema. NEUROLOGICAL: Cranial nerves II-XII intact. Normal speech. Normal gait. PSYCHIATRIC: Cooperative. Good eye contact. Appropriate mood and affect. SKIN: lower mid back post- surgical scars noted, no infection seen, nontender to palpation Laboratory Results - last 24 hr 01/07/19 01/07/19 01/07/19 17:00 17:10 17:10 WBC 7.6 RBC 4.27 Hgb 13.3 Hct 39.5 MCV 92.5 MCH 31.0 MCHC 33.6 RDW 12.2 Plt Count 277 MPV 8.1 Absolute Neuts (auto) 4.4 Neutrophils % 58.3 Lymphocytes % 22.0 Monocytes % 15.4 H Eosinophils % 2.9 Basophils % 1.4 PT with INR INR PTT (Actin FS) Sodium 134 L Potassium 4.9 Chloride 97 L Carbon Dioxide 30 Anion Gap 7 L BUN 14 Creatinine 0.7 Creat Clearance w eGFR > 60 Random Glucose 170 H Calcium 9.3 Total Bilirubin 0.6 AST 25 ALT 27 Alkaline Phosphatase 64 Total Protein 6.5 Albumin 3.0 L Urine Color Yellow Urine Appearance Clear Urine pH 7.0 Ur Specific [place] 1.020 Urine Protein Negative Urine Glucose (UA) Negative Urine Ketones Negative Urine Blood Negative Urine Nitrite Negative Urine Bilirubin Negative Urine Urobilinogen 1.0 Ur Leukocyte Esterase Negative Blood Type Antibody Screen 01/07/19 01/07/19 17:10 17:10 WBC RBC Hgb Hct MCV MCH MCHC RDW Plt Count MPV Absolute Neuts (auto) Neutrophils % Lymphocytes % Monocytes % Eosinophils % Basophils % PT with INR 13.0 INR 1.16 PTT (Actin FS) 30.0 Sodium Potassium Chloride Carbon Dioxide Anion Gap BUN Creatinine Creat Clearance w eGFR Random Glucose Calcium Total Bilirubin AST ALT Alkaline Phosphatase Total Protein Albumin Urine Color Urine Appearance Urine pH Ur Specific [place] Urine Protein Urine Glucose (UA) Urine Ketones Urine Blood Urine Nitrite Urine Bilirubin Urine Urobilinogen Ur Leukocyte Esterase Blood Type A POSITIVE Antibody Screen Negative Spine CT report reviewed ASSESSMENT/PLAN: #83yo woman smoker with recent lumbar surgery L4-L5 with revision the next day with severe back pain with which is now better controlled, sciatica in left lower extremity. No neuro deficits noted on physical exam. No clinical evidence of infection at this time- wound site does not appear infected and there is no fever or leukocytosis. As per ER attending discussion with neurosurgeon who reviewed Lumbar spine CT- it is consistent with normal post op changes. -observation -neurochecks q4hrs -neurosurgery consult -morphine ER 15mg bid with IVP for breakthrough pain -gabapentin for atypical pain (sciatica) -bed rest -wound care (post-op) -possible MRI - #Constipation -dulcolax -docusate sodium #DM -insulin sliding scale -a1c #tobacco smoking -cessation counseling provided dvt ppx- heparin sc Visit type - Emergency Visit Emergency Visit: Yes ED Registration Date: 01/07/19 Care time: The patient presented to the Emergency Department on the above date and was hospitalized for further evaluation of their emergent condition. - New Patient This patient is new to me today: Yes Date on this admission: 01/07/19 - Critical Care Critical Care patient: No
[2019-01-07] MEDS ORDERED: morphine CARPU-JECT 2 MG/1 ML DISP.SYRIN IVPUSH PRN (20:40)
[2019-01-07] MEDS ORDERED: BISACODYL 5 MG TABLET.DR (FP) PO ONE (22:24)
[2019-01-07] MEDS: HEPARIN NA (PORCINE) 5,000 UNITS/ML 1ML VIAL SQ SCH (22:57)
[2019-01-07] MEDS: GABAPENTIN 300 MG CAPSULE (FP) PO SCH (22:57)
[2019-01-07] MEDS: morphine SO4 SUSTAINED ACTING 15 MG TABLET.SA PO SCH (22:57)
[2019-01-07] MEDS: DOCUSATE SODIUM 100 MG CAPSULE (FP) PO SCH (22:57)
[2019-01-08] MEDS: INSULIN SLIDING SCALE (NOVOLOG) 1 VIAL SQ SCH ×4 (06:15→23:14)
[2019-01-08] MEDS: DOCUSATE SODIUM 100 MG CAPSULE (FP) PO SCH ×2 (06:16→21:26)
[2019-01-08 07:31] LABS: HEMATOCRIT 37.7 % (32.4-45.2); HEMOGLOBIN 12.6 GM/dl (10.7-15.3); MCH 31.1 pg (25.7-33.7); MCHC 33.4 g/dl (32.0-36.0); MEAN CELL VOLUME 93.3 fl (80-96); MEAN PLT VOLUME 8.4 fl (7.5-11.1); PLATELET COUNT 302 K/MM3 (134-434); RBC 4.04 M/mm3 (3.60-5.2); RDW 12.1 % (11.6-15.6); WHITE BLOOD COUNT 5.9 K/mm3 (4.0-10.8)
[2019-01-08 07:42] LABS: ANION GAP 8 MMOL/L (8-16); BLOOD UREA NITROGEN 26 mg/dl (7-18); CHLORIDE 97 mmol/L (98-107); CO2 27 mmol/L (21-32); CREATININE 0.9 mg/dl (0.55-1.3); GLUCOSE,RANDOM 239 mg/dl (74-106); POTASSIUM 4.8 mmol/L (3.5-5.1); SODIUM 132 mmol/L (136-145)
[2019-01-08] MEDS: HEPARIN NA (PORCINE) 5,000 UNITS/ML 1ML VIAL SQ SCH ×2 (09:29→21:26)
[2019-01-08] MEDS: morphine SO4 SUSTAINED ACTING 15 MG TABLET.SA PO SCH (09:29)
[2019-01-08] MEDS: PANTOPRAZOLE 20 MG TABLET (FP) PO SCH (09:29)
[2019-01-08] MEDS: GABAPENTIN 300 MG CAPSULE (FP) PO SCH ×2 (09:29→21:27)
--- NOTE | 2019-01-08 09:54 | PN ---
Physical Exam: SUBJECTIVE: Patient seen and examined oob to chair. Was dozing, awakens smiling , states pain is much better than it was at [facility]. Walked 30 feet with PT today. OBJECTIVE: Vital Signs Period Temp Pulse Resp BP Sys/Rodriguez Pulse Ox Last 24 Hr 97.9 F-99 F 78-95 16-20 113-156/69-87 94-99 GENERAL: The patient is awake, alert, and fully oriented, in no acute distress. LUNGS: Breath sounds equal, clear to auscultation bilaterally HEART: Regular rate and rhythm, S1, S2 ABDOMEN: Soft, nontender, nondistended EXTREMITIES: 2+ pulses, warm, well-perfused, no edema. NEUROLOGICAL: Cranial nerves II through XII grossly intact. Normal speech. Moving all extremities freely, positions easily in chair. MUSCULOSKELTAL: Surgical dressing mid-lumbar area c/d/i; no surrouding erythema , warmth, fluctance Laboratory Results - last 24 hr 01/07/19 01/07/19 01/07/19 06:49 17:00 17:10 WBC 7.6 RBC 4.27 Hgb 13.3 Hct 39.5 MCV 92.5 MCH 31.0 MCHC 33.6 RDW 12.2 Plt Count 277 MPV 8.1 Absolute Neuts (auto) 4.4 Neutrophils % 58.3 Lymphocytes % 22.0 Monocytes % 15.4 H Eosinophils % 2.9 Basophils % 1.4 PT with INR INR PTT (Actin FS) Sodium Potassium Chloride Carbon Dioxide Anion Gap BUN Creatinine Creat Clearance w eGFR POC Glucometer Random Glucose Calcium Total Bilirubin AST ALT Alkaline Phosphatase Total Protein Albumin Urine Color Yellow Urine Appearance Clear Urine pH 7.0 Ur Specific [place] 1.020 Urine Protein Negative Urine Glucose (UA) Negative Urine Ketones Negative Urine Blood Negative Urine Nitrite Negative Urine Bilirubin Negative Urine Urobilinogen 1.0 Ur Leukocyte Esterase Negative Blood Type A POSITIVE Antibody Screen 01/07/19 01/07/19 01/07/19 17:10 17:10 17:10 WBC RBC Hgb Hct MCV MCH MCHC RDW Plt Count MPV Absolute Neuts (auto) Neutrophils % Lymphocytes % Monocytes % Eosinophils % Basophils % PT with INR 13.0 INR 1.16 PTT (Actin FS) 30.0 Sodium 134 L Potassium 4.9 Chloride 97 L Carbon Dioxide 30 Anion Gap 7 L BUN 14 Creatinine 0.7 Creat Clearance w eGFR > 60 POC Glucometer Random Glucose 170 H Calcium 9.3 Total Bilirubin 0.6 AST 25 ALT 27 Alkaline Phosphatase 64 Total Protein 6.5 Albumin 3.0 L Urine Color Urine Appearance Urine pH Ur Specific [place] Urine Protein Urine Glucose (UA) Urine Ketones Urine Blood Urine Nitrite Urine Bilirubin Urine Urobilinogen Ur Leukocyte Esterase Blood Type A POSITIVE Antibody Screen Negative 01/08/19 01/08/19 01/08/19 06:12 06:49 06:49 WBC 5.9 RBC 4.04 Hgb 12.6 Hct 37.7 MCV 93.3 MCH 31.1 MCHC 33.4 RDW 12.1 Plt Count 302 MPV 8.4 Absolute Neuts (auto) Neutrophils % Lymphocytes % Monocytes % Eosinophils % Basophils % PT with INR INR PTT (Actin FS) Sodium 132 L Potassium 4.8 Chloride 97 L Carbon Dioxide 27 Anion Gap 8 BUN 26 H Creatinine 0.9 Creat Clearance w eGFR 59.80 POC Glucometer 244 Random Glucose 239 H Calcium 9.0 Total Bilirubin AST ALT Alkaline Phosphatase Total Protein Albumin Urine Color Urine Appearance Urine pH Ur Specific [place] Urine Protein Urine Glucose (UA) Urine Ketones Urine Blood Urine Nitrite Urine Bilirubin Urine Urobilinogen Ur Leukocyte Esterase Blood Type Antibody Screen Current Medications Generic Name Dose Route Start Last Admin Trade Name Freq PRN Reason Stop Dose Admin Acetaminophen 650 mg 01/08/19 16:00 Tylenol - PO Q6H [facility] Docusate Sodium 100 mg 01/07/19 22:30 01/08/19 06:16 Colace - PO 100 mg TID MARILU Administration Gabapentin 300 mg 01/07/19 22:00 01/08/19 09:29 Neurontin - PO 300 mg BID MARILU Administration Heparin Sodium (Porcine) 5,000 unit 01/07/19 22:00 01/08/19 09:29 Heparin - SQ 5,000 unit BID MARILU Administration Insulin Aspart 1 vial 01/08/19 07:00 01/08/19 11:57 Novolog Vial Sliding Scale - SQ Not Given [facility] Protocol Oxycodone/Acetaminophen 1 combo 01/08/19 16:00 Percocet 5/325 - PO Q6H PRN PAIN LEVEL 6-10 Pantoprazole Sodium 20 mg 01/08/19 10:00 01/08/19 09:29 Protonix - PO 20 mg DAILY MARILU Administration ASSESSMENT/PLAN 83 year-old female with a PMH significant for HLD, Type II NIDDM, GERD, s/p L4- L5 TLIF with revision. L4-L5 TLIF with revision --12/31 L4-L5 transforaminal lumbar interbody fusion/instrumentation (Alexandro) --01/01 revision of left L4 pedicle screw --01/04 discharge to [facility] --01/07 re-admitted [facility] --01/07 CT LS: interval development of small amount of air/gas at the site of a partial left L4-L5 facetectomy, postsurgical change v. infection --01/08 MRI LS: pending --afebrile, no leukocytosis; ID consult requested --PO meds for pain management --protonix --incentive spirometer --bowel regimen --surgical team following FEN Fluids: PO intake adequate Electrolytes: replete as indicated Nutrition: regular diet DVT prophylaxis: OOB, ambulation, subq heparin Physical therapy Dispo: continues to require inpatient care. Full code. Visit type - Emergency Visit Emergency Visit: Yes ED Registration Date: 01/07/19 Care time: The patient presented to the Emergency Department on the above date and was hospitalized for further evaluation of their emergent condition. - New Patient This patient is new to me today: Yes Date on this admission: 01/08/19 - Critical Care Critical Care patient: No
--- NOTE | 2019-01-08 10:13 | EKG ---
Test Reason : Blood Pressure : / mmHG Vent. Rate : 098 BPM Atrial Rate : 098 BPM P-R Int : 182 ms QRS Dur : 082 ms QT Int : 346 ms P-R-T Axes : 041 031 062 degrees QTc Int : 441 ms NORMAL SINUS RHYTHM POSSIBLE LEFT ATRIAL ENLARGEMENT NONSPECIFIC T WAVE ABNORMALITY ABNORMAL ECG NO PREVIOUS ECGS AVAILABLE Confirmed by DILCIA PALOMINO MD ([id number]) on 01/08/2019 10:12:56 AM Referred By: DR COSTELLO Confirmed By:DILCIA PALOMINO MD
--- NOTE | 2019-01-08 10:38 | PN ---
Progress Note (short form) - Note Progress Note: Pt seen and examined this am. She states that her leg pain is better this am, having pain in the left calf and thigh in the posterior/lateral aspect. No difficulties voiding. Vital Signs Period Temp Pulse Resp BP Sys/Rodriguez Pulse Ox Last 24 Hr 97.6 F-99 F 78-95 16-20 113-156/63-87 94-99 GEN: A&0x3, NAD Back: dressing changed, Steri-strips falling off own on. No drainage, erythema or redness noted. Neuro: RLE 5/5 dorsi/plantar flexion. LLE 5/5 plantar flexion with 3/5 dorsi flexion. Vital Signs Period Temp Pulse Resp BP Sys/Rodriguez Pulse Ox Last 24 Hr 97.6 F-99 F 78-95 16-20 113-156/63-87 94-99 CT Scan: L4-5 with air/gas near surgical site. Infection versus post-surgical changes on radiology reading. Microbiology urine Culture pending A/P: 83 yo female s/p TLIF L4-5 with revision of Left L4 screw. Admitted with left lower ext pain CT scan reviewed with radiology and there is a question of loose fragments/ possible bone fragments at the surgical site Plan for MRI to better define this area OOB and ambulate with assistance/PT Pain control as needed Stool softners to minimize constipation symptoms with narcotic use D/w Dr. Mc and he agrees with the plan D/w the care plan with the medical team, plan for ID consult <Hodan Braswell - Last Filed: 01/08/19 14:19> - Note Progress Note: I had a long discussion with Michelle and her daughter I explained to them that there appears to be a bone fragment pushing on the nerve on the left I recommended that we should do a Laminectomy to remove that fragment We had an extensive discussion regarding the risks/benefits and the patient would like to proceed <Zacarias Mc - Last Filed: 01/08/19 16:39>
[2019-01-08] MEDS ORDERED: PT OWN MED DRAWER 7, Y5N ONE (14:01)
[2019-01-08] MEDS: TRIAMTERENE AND HCTZ - 37.5 MG/25 MG CAPSULE PO SCH (14:06)
[2019-01-08] MEDS: POLYETHYLENE GLYCOL 3350 119 GM BTL PO SCH ×2 (14:07→21:27)
--- NOTE | 2019-01-08 15:52 | CON.ID ---
Consult Consult Specialty:: infectious diseases Referred by:: Zoila Reason for Consultation:: post op back pain,r/o infectious process - History of Present Illness Chief Complaint: back pain History of Present Illness: 83 year old female w/ recent spinal surgery- L4-5 01/03 with revison the next day for according to the patients family for screw fixation and then discharged to rehab, J[facility] from [facility] to hospital for increasing back pain radiating down left leg. Pt sent by neurosurgeon for pain control and MRI. Pt stated since her surgeries she has had severe back pain w/ left leg radiation preventing her from ambulating and preventing her from getting out of bed to urinate. She denied any fevers or discharge from surgery site. she also denies any tingling or numbness in the leg rather mentions that the numbness has improved the pain is very bad and the patient cannot do any physio and unable to ambulate otherwise clinically the patient is stable - History Source History Provided By: Patient, Family Member Limitations to Obtaining History: Language Barrier - Alcohol/Substance Use Hx Alcohol Use: No - Smoking History Smoking history: Current every day smoker Have you smoked in the past 12 months: Yes Aproximately how many cigarettes per day: 6 Home Medications - Allergies Allergies/Adverse Reactions: Allergies Allergy/AdvReac Type Severity Reaction Status Date / Time No Known Allergies Allergy Verified 01/07/19 15:57 - Home Medications Home Medications: Ambulatory Orders Gabapentin [Neurontin -] 300 mg PO BID 12/25/18 Glimepiride 1 each PO DAILY 12/25/18 Triamterene/Hydrochlorothiazid [Triamterene-Hctz 37.5-25 mg Tb] 1 each PO DAILY 12/31/18 Acetaminophen [Tylenol .Regular Strength -] 650 mg PO Q8H PRN 01/07/19 Gabapentin 600 mg PO HS 01/07/19 Morphine *Sr* [Ms Contin -] 15 mg PO Q12H 01/07/19 Omeprazole Magnesium [Prilosec Otc] 20 mg PO DAILY 01/07/19 Oxycodone HCl 10 mg PO Q6H PRN 01/07/19 Oxycodone HCl 10 mg PO TID 01/07/19 Review of Systems - Review of Systems Constitutional: reports: No Symptoms. denies: Chills, Fever Eyes: reports: No Symptoms HENT: reports: No Symptoms Neck: reports: No Symptoms Cardiovascular: reports: No Symptoms Respiratory: reports: No Symptoms Gastrointestinal: reports: No Symptoms Genitourinary: reports: No Symptoms Musculoskeletal: reports: Back Pain Integumentary: reports: No Symptoms Neurological: reports: No Symptoms Endocrine: reports: No Symptoms Hematology/Lymphatic: reports: No Symptoms Psychiatric: reports: No Symptoms Physical Exam Vital Signs: Vital Signs Temperature 98.1 F 01/08/19 14:11 Pulse Rate 96 H 01/08/19 14:11 Respiratory Rate 18 01/08/19 14:11 Blood Pressure 132/66 01/08/19 14:11 O2 Sat by Pulse Oximetry (%) 94 L 01/08/19 14:11 Constitutional: Yes: Well Nourished, Calm, Moderate Distress (when she moves) Eyes: Yes: Conjunctiva Clear HENT: Yes: Atraumatic, Normocephalic Neck: Yes: Supple, Trachea Midline Cardiovascular: Yes: Regular Rate and Rhythm Respiratory: Yes: Regular, CTA Bilaterally Gastrointestinal: Yes: Normal Bowel Sounds, Soft Musculoskeletal: Yes: Back Pain Extremities: Yes: WNL Wound/Incision: Yes: Dressing Dry and Intact Neurological: Yes: Alert, Oriented Psychiatric: Yes: Alert, Oriented Labs: CBC, BMP 01/08/19 06:49 01/08/19 06:49 Imaging - Results Chest X-ray: Report Reviewed, Image Reviewed Cat Scan: Report Reviewed, Image Reviewed MRI: Image Reviewed Assessment/Plan 83 year-old female with a PMH significant for HLD, Type II NIDDM, GERD, s/p L4- L5 TLIF with revision. L4-L5 TLIF with revision l left L4-L5 facetectomy, after looking at the all the reports and the history i have a very low threshold that this is infectious process going on at this moment i am not going to start any abx will await for the mri read and wait for the surgeons input patient apart from pain is completely asymptomatic
[2019-01-08] MEDS ORDERED: ACETAMINOPHEN 325 MG TABLET (FP) PO SCH (16:00)
[2019-01-09] MEDS: INSULIN SLIDING SCALE (NOVOLOG) 1 VIAL SQ SCH ×4 (06:23→21:32)
[2019-01-09 08:43] LABS: BASO % 0.3 % (0-2.0); EOS % 4.1 % (0-4.5); HEMOGLOBIN 12.2 GM/dl (10.7-15.3); LYMPH % 35.5 % (8-40); MCH 31.7 pg (25.7-33.7); MCHC 33.9 g/dl (32.0-36.0); MEAN CELL VOLUME 93.5 fl (80-96); MEAN PLT VOLUME 8.3 fl (7.5-11.1); MONO % 12.6 % (3.8-10.2); NEUT % 47.5 % (42.8-82.8); PLATELET COUNT 303 K/MM3 (134-434); RBC 3.85 M/mm3 (3.60-5.2); RDW 12.2 % (11.6-15.6); WHITE BLOOD COUNT 7.1 K/mm3 (4.0-10.8)
[2019-01-09 08:47] LABS: ALBUMIN 2.8 g/dl (3.4-5.0); ALK PHOS 45 U/L (45-117); ANION GAP 8 MMOL/L (8-16); BILIRUBIN,TOTAL 0.9 mg/dl (0.2-1); BLOOD UREA NITROGEN 27 mg/dl (7-18); CALCIUM 8.8 mg/dl (8.5-10); CHLORIDE 99 mmol/L (98-107); CO2 30 mmol/L (21-32); CREATININE 0.8 mg/dl (0.55-1.3); GLUCOSE,RANDOM 160 mg/dl (74-106); MAGNESIUM 2.3 mg/dL (1.8-2.4); POTASSIUM 4.8 mmol/L (3.5-5.1); SGOT/AST 17 U/L (15-37); SGPT/ALT 22 U/L (13-61); SODIUM 137 mmol/L (136-145); TOT PROT 5.9 g/dl (6.4-8.2)
[2019-01-09] MEDS ORDERED: TRIAMTERENE AND HCTZ - 37.5 MG/25 MG CAPSULE PO SCH (10:00)
--- NOTE | 2019-01-09 10:00 | PN ---
Physical Exam: SUBJECTIVE: Patient seen and examined, c/o headache this morning, asking for tylenol. OBJECTIVE: Vital Signs Period Temp Pulse Resp BP Sys/Rodriguez Pulse Ox Last 24 Hr 97.8 F-98.3 F 75-96 18-20 110-133/55-66 94-99 GENERAL: The patient is awake, alert, and fully oriented, in no acute distress. HEAD: Normal with no signs of trauma. EYES: PERRL, extraocular movements intact, sclera anicteric, conjunctiva clear. No ptosis. ENT: Ears normal, nares patent, oropharynx clear without exudates, moist mucous membranes. NECK: Trachea midline, full range of motion, supple. LUNGS: Breath sounds equal, clear to auscultation bilaterally, no wheezes, no crackles, no accessory muscle use. HEART: Regular rate and rhythm, S1, S2 without murmur, rub or gallop. ABDOMEN: Soft, nontender, nondistended, normoactive bowel sounds, no guarding, no rebound, no hepatosplenomegaly, no masses. EXTREMITIES: 2+ pulses, warm, well-perfused, no edema. NEUROLOGICAL: Cranial nerves II through XII grossly intact. Normal speech, gait not observed. PSYCH: Normal mood, normal affect. SKIN: Warm, dry, normal turgor, no rashes or lesions noted Laboratory Results - last 24 hr 01/08/19 01/08/19 01/08/19 11:56 16:17 23:12 WBC RBC Hgb Hct MCV MCH MCHC RDW Plt Count MPV Absolute Neuts (auto) Neutrophils % Lymphocytes % Monocytes % Eosinophils % Basophils % Sodium Potassium Chloride Carbon Dioxide Anion Gap BUN Creatinine Creat Clearance w eGFR POC Glucometer 129 162 246 Random Glucose Calcium Magnesium Total Bilirubin AST ALT Alkaline Phosphatase Total Protein Albumin 01/09/19 01/09/19 01/09/19 06:17 07:19 07:19 WBC 7.1 RBC 3.85 Hgb 12.2 Hct 36.0 MCV 93.5 MCH 31.7 MCHC 33.9 RDW 12.2 Plt Count 303 MPV 8.3 Absolute Neuts (auto) 3.4 Neutrophils % 47.5 Lymphocytes % 35.5 Monocytes % 12.6 H Eosinophils % 4.1 Basophils % 0.3 Sodium 137 Potassium 4.8 Chloride 99 Carbon Dioxide 30 Anion Gap 8 BUN 27 H Creatinine 0.8 Creat Clearance w eGFR > 60 POC Glucometer 149 Random Glucose 160 H Calcium 8.8 Magnesium 2.3 Total Bilirubin 0.9 AST 17 ALT 22 Alkaline Phosphatase 45 D Total Protein 5.9 L Albumin 2.8 L Active Medications Generic Name Dose Route Start Last Admin Trade Name Andreq PRN Reason Stop Dose Admin Acetaminophen 650 mg 01/09/19 09:52 Tylenol - PO Q6H PRN PAIN LEVEL 1-5 Docusate Sodium 300 mg 01/08/19 22:00 01/08/19 21:26 Colace - PO 300 mg HS MARILU Administration Gabapentin 300 mg 01/07/19 22:00 01/08/19 21:27 Neurontin - PO 300 mg BID MARILU Administration Heparin Sodium (Porcine) 5,000 unit 01/07/19 22:00 01/08/19 21:26 Heparin - SQ 5,000 unit BID MARILU Administration Insulin Aspart 1 vial 01/08/19 07:00 01/09/19 06:23 Novolog Vial Sliding Scale - SQ Not Given ACHS [facility] Protocol Oxycodone/Acetaminophen 1 combo 01/08/19 16:00 Percocet 5/325 - PO Q6H PRN PAIN LEVEL 6-10 Pantoprazole Sodium 20 mg 01/08/19 10:00 01/08/19 09:29 Protonix - PO 20 mg DAILY MARILU Administration Polyethylene Glycol 17 gm 01/08/19 13:30 01/08/19 21:27 Miralax (For Daily Use) - PO 17 grams BID MARILU Administration Triamterene/HCTZ 1 cap 01/08/19 13:30 01/08/19 14:06 Dyazide 25/37.5mg PO 1 cap DAILY MARILU Administration ASSESSMENT/PLAN: 83 year-old female with a PMH significant for HLD, Type II NIDDM, GERD, s/p L4- L5 TLIF with revision. L4-L5 TLIF with revision --12/31 L4-L5 transforaminal lumbar interbody fusion/instrumentation (Alexandro) --01/01 revision of left L4 pedicle screw --01/04 discharge to [facility] --01/07 re-admitted [facility] --01/07 CT LS: interval development of small amount of air/gas at the site of a partial left L4-L5 facetectomy, postsurgical change v. infection --3/1 MRI LS: pending --afebrile, no leukocytosis; ID note appreciated- no infectious process noted , deferred to start Abt --PO meds for pain management --protonix --incentive spirometer --bowel regimen --surgical team following FEN Fluids: PO intake adequate Electrolytes: replete as indicated Nutrition: regular diet DVT prophylaxis: OOB, ambulation, subq heparin Physical therapy Dispo: continues to require inpatient care. Full code. Visit type - Emergency Visit Emergency Visit: Yes ED Registration Date: 01/07/19 Care time: The patient presented to the Emergency Department on the above date and was hospitalized for further evaluation of their emergent condition. - New Patient This patient is new to me today: Yes Date on this admission: 01/09/19 - Critical Care Critical Care patient: No
[2019-01-09] MEDS: TRIAMTERENE AND HCTZ - 37.5 MG/25 MG CAPSULE PO SCH (10:32)
[2019-01-09] MEDS: ACETAMINOPHEN 325 MG TABLET (FP) PO PRN ×2 (10:33→21:33)
[2019-01-09] MEDS: HEPARIN NA (PORCINE) 5,000 UNITS/ML 1ML VIAL SQ SCH ×2 (10:33→21:21)
[2019-01-09] MEDS: PANTOPRAZOLE 20 MG TABLET (FP) PO SCH (10:33)
[2019-01-09] MEDS: GABAPENTIN 300 MG CAPSULE (FP) PO SCH ×2 (10:33→21:21)
[2019-01-09] MEDS: POLYETHYLENE GLYCOL 3350 119 GM BTL PO SCH ×2 (10:34→21:25)
--- NOTE | 2019-01-09 11:07 | PN ---
Progress Note, Physician History of Present Illness: Pt seen and examined, events reviewed. She is alert and fully responsive. Back pain is controlled. c/o minor headache but no other specific complaints. - Current Medication List Current Medications: Active Medications Acetaminophen (Tylenol -) 650 mg PO Q6H PRN PRN Reason: PAIN LEVEL 1-5 Last Admin: 01/09/19 10:33 Dose: 650 mg Docusate Sodium (Colace -) 300 mg PO HS [facility] Last Admin: 01/08/19 21:26 Dose: 300 mg Gabapentin (Neurontin -) 300 mg PO BID [facility] Last Admin: 01/09/19 10:33 Dose: 300 mg Heparin Sodium (Porcine) (Heparin -) 5,000 unit SQ BID [facility] Last Admin: 01/09/19 10:33 Dose: 5,000 unit Insulin Aspart (Novolog Vial Sliding Scale -) 1 vial SQ [facility]; Protocol Last Admin: 01/09/19 06:23 Dose: Not Given Oxycodone/Acetaminophen (Percocet 5/325 -) 1 combo PO Q6H PRN PRN Reason: PAIN LEVEL 6-10 Pantoprazole Sodium (Protonix -) 20 mg PO DAILY [facility] Last Admin: 01/09/19 10:33 Dose: 20 mg Polyethylene Glycol (Miralax (For Daily Use) -) 17 gm PO BID [facility] Last Admin: 01/09/19 10:34 Dose: 17 grams Triamterene/HCTZ (Dyazide 25/37.5mg) 1 cap PO DAILY [facility] Last Admin: 01/09/19 10:32 Dose: 1 cap - Objective Vital Signs: Vital Signs Temperature 97.8 F 01/09/19 09:52 Pulse Rate 75 01/09/19 09:52 Respiratory Rate 18 01/09/19 09:52 Blood Pressure 121/55 L 01/09/19 09:52 O2 Sat by Pulse Oximetry (%) 99 01/09/19 09:52 Constitutional: Yes: No Distress, Calm Cardiovascular: Yes: Regular Rate and Rhythm Respiratory: Yes: Regular Gastrointestinal: Yes: Normal Bowel Sounds, Soft Extremities: Yes: WNL Integumentary: Yes: WNL Wound/Incision: Yes: Dressing Dry and Intact, Other Neurological: Yes: Alert Labs: CBC, BMP 01/09/19 07:19 01/09/19 07:19 INR, PTT INR 1.16 (0.82-1.09) 01/07/19 17:10 Microbiology 01/07/19 17:00 Urine - Urine Clean Catch Urine Culture - Final NO GROWTH OBTAINED - ....Imaging MRI: Report Reviewed Problem List - Problems (1) History of spinal surgery Code(s): Z98.890 - OTHER SPECIFIED POSTPROCEDURAL STATES (2) Intractable back pain Code(s): M54.9 - DORSALGIA, UNSPECIFIED (3) Spondylolisthesis at L4-L5 level Code(s): M43.16 - SPONDYLOLISTHESIS, LUMBAR REGION Assessment/Plan Back Pain s/p L4-L5 TLIF/revision -- MRI results noted -- At this time will continue monitor off antibiotics -- Orthopedic f/u
[2019-01-09] MEDS: DOCUSATE SODIUM 100 MG CAPSULE (FP) PO SCH (21:24)
[2019-01-10] MEDS: ACETAMINOPHEN 325 MG TABLET (FP) PO PRN ×3 (05:48→21:00)
[2019-01-10] MEDS: INSULIN SLIDING SCALE (NOVOLOG) 1 VIAL SQ SCH ×4 (06:46→22:14)
[2019-01-10] MEDS ORDERED: PT OWN MED DRAWER 7, Y5N ONE (09:14)
[2019-01-10 09:16] LABS: EOS % 5.2 % (0-4.5); HEMATOCRIT 36.3 % (32.4-45.2); HEMOGLOBIN 12.1 GM/dl (10.7-15.3); LYMPH % 36.2 % (8-40); MCH 31.1 pg (25.7-33.7); MCHC 33.4 g/dl (32.0-36.0); MEAN PLT VOLUME 8.5 fl (7.5-11.1); MONO % 18.1 % (3.8-10.2); NEUT % 40.1 % (42.8-82.8); PLATELET COUNT 317 K/MM3 (134-434); RDW 12.1 % (11.6-15.6); WHITE BLOOD COUNT 5.2 K/mm3 (4.0-10.8)
[2019-01-10] MEDS: POLYETHYLENE GLYCOL 3350 119 GM BTL PO SCH ×2 (09:18→22:03)
[2019-01-10] MEDS: HEPARIN NA (PORCINE) 5,000 UNITS/ML 1ML VIAL SQ SCH ×2 (09:18→22:03)
[2019-01-10] MEDS: TRIAMTERENE AND HCTZ - 37.5 MG/25 MG CAPSULE PO SCH (09:18)
[2019-01-10] MEDS: GABAPENTIN 300 MG CAPSULE (FP) PO SCH ×2 (09:19→22:03)
[2019-01-10] MEDS: PANTOPRAZOLE 20 MG TABLET (FP) PO SCH (09:19)
[2019-01-10 09:23] LABS: ALBUMIN 2.9 g/dl (3.4-5.0); ALK PHOS 46 U/L (45-117); ANION GAP 11 MMOL/L (8-16); BILIRUBIN,TOTAL 0.8 mg/dl (0.2-1); BLOOD UREA NITROGEN 23 mg/dl (7-18); CALCIUM 8.5 mg/dl (8.5-10); CHLORIDE 100 mmol/L (98-107); CO2 27 mmol/L (21-32); CREATININE 0.7 mg/dl (0.55-1.3); GLUCOSE,RANDOM 142 mg/dl (74-106); SGOT/AST 16 U/L (15-37); SGPT/ALT 20 U/L (13-61); SODIUM 138 mmol/L (136-145); TOT PROT 5.8 g/dl (6.4-8.2)
--- NOTE | 2019-01-10 10:44 | PN ---
Physical Exam: SUBJECTIVE: Patient seen and examined, ambulated with PT, c/o pain in left leg radiating down, feel better when sitting down OBJECTIVE: Vital Signs Period Temp Pulse Resp BP Sys/Rodriguez Pulse Ox Last 24 Hr 98.0 F-99.0 F 75-84 16-18 114-136/48-62 97-99 GENERAL: The patient is awake, alert, and fully oriented, in no acute distress. HEAD: Normal with no signs of trauma. EYES: PERRL, extraocular movements intact, sclera anicteric, conjunctiva clear. No ptosis. ENT: Ears normal, nares patent, oropharynx clear without exudates, moist mucous membranes. NECK: Trachea midline, full range of motion, supple. LUNGS: Breath sounds equal, clear to auscultation bilaterally, no wheezes, no crackles, no accessory muscle use. HEART: Regular rate and rhythm, S1, S2 without murmur, rub or gallop. ABDOMEN: Soft, nontender, nondistended, normoactive bowel sounds, no guarding, no rebound, no hepatosplenomegaly, no masses. EXTREMITIES: 2+ pulses, warm, well-perfused, no edema. NEUROLOGICAL: Cranial nerves II through XII grossly intact. Normal speech, gait not observed. PSYCH: Normal mood, normal affect. SKIN: Warm, dry, normal turgor, no rashes or lesions noted Laboratory Results - last 24 hr 01/09/19 01/09/19 01/09/19 11:42 16:55 21:29 WBC RBC Hgb Hct MCV MCH MCHC RDW Plt Count MPV Absolute Neuts (auto) Neutrophils % Lymphocytes % Monocytes % Eosinophils % Sodium Potassium Chloride Carbon Dioxide Anion Gap BUN Creatinine Creat Clearance w eGFR POC Glucometer 167 156 273 Random Glucose Calcium Total Bilirubin AST ALT Alkaline Phosphatase Total Protein Albumin 01/10/19 01/10/19 01/10/19 06:26 08:00 08:00 WBC 5.2 RBC 3.90 Hgb 12.1 Hct 36.3 MCV 93.0 MCH 31.1 MCHC 33.4 RDW 12.1 Plt Count 317 MPV 8.5 Absolute Neuts (auto) 2.1 Neutrophils % 40.1 L Lymphocytes % 36.2 Monocytes % 18.1 H Eosinophils % 5.2 H Sodium 138 Potassium 4.0 Chloride 100 Carbon Dioxide 27 Anion Gap 11 BUN 23 H Creatinine 0.7 Creat Clearance w eGFR > 60 POC Glucometer 152 Random Glucose 142 H Calcium 8.5 Total Bilirubin 0.8 AST 16 ALT 20 Alkaline Phosphatase 46 Total Protein 5.8 L Albumin 2.9 L Active Medications Generic Name Dose Route Start Last Admin Trade Name Freq PRN Reason Stop Dose Admin Acetaminophen 650 mg 01/09/19 09:52 01/10/19 10:31 Tylenol - PO 650 mg Q6H PRN Administration PAIN LEVEL 1-5 Docusate Sodium 300 mg 01/08/19 22:00 01/09/19 21:24 Colace - PO Not Given HS MARILU Gabapentin 300 mg 01/07/19 22:00 01/10/19 09:19 Neurontin - PO 300 mg BID MARILU Administration Heparin Sodium (Porcine) 5,000 unit 01/07/19 22:00 01/10/19 09:18 Heparin - SQ 5,000 unit BID MARILU Administration Insulin Aspart 1 vial 01/08/19 07:00 01/10/19 06:46 Novolog Vial Sliding Scale - SQ 2 units ACHS MARILU Administration Protocol Oxycodone/Acetaminophen 1 combo 01/08/19 16:00 Percocet 5/325 - PO Q6H PRN PAIN LEVEL 6-10 Pantoprazole Sodium 20 mg 01/08/19 10:00 01/10/19 09:19 Protonix - PO 20 mg DAILY MARILU Administration Polyethylene Glycol 17 gm 01/08/19 13:30 01/10/19 09:18 Miralax (For Daily Use) - PO 17 grams BID MARILU Administration Triamterene/HCTZ 1 cap 01/08/19 13:30 01/10/19 09:18 Dyazide 25/37.5mg PO 1 cap DAILY MARILU Administration ASSESSMENT/PLAN: 83 year-old female with a PMH significant for HLD, Type II NIDDM, GERD, s/p L4- L5 TLIF with revision. L4-L5 TLIF with revision --12/31 L4-L5 transforaminal lumbar interbody fusion/instrumentation (Alexandro) --01/01 revision of left L4 pedicle screw --01/04 discharge to [facility] --01/07 re-admitted [facility] --01/07 CT LS: interval development of small amount of air/gas at the site of a partial left L4-L5 facetectomy, postsurgical change v. infection --01/08 MRI LS: pending --afebrile, no leukocytosis; ID note appreciated- no infectious process noted , deferred to start Abt --PO meds for pain management --protonix --incentive spirometer --bowel regimen --surgical team following-pending Laminectomy #DM -monitor FS -ISC #HTN -cont with Dyazide FEN Fluids: PO intake adequate Electrolytes: replete as indicated Nutrition: regular diet DVT prophylaxis: OOB, ambulation, subq heparin Physical therapy Dispo: continues to require inpatient care. Full code. Visit type - Emergency Visit Emergency Visit: Yes ED Registration Date: 01/07/19 Care time: The patient presented to the Emergency Department on the above date and was hospitalized for further evaluation of their emergent condition. - New Patient This patient is new to me today: Yes Date on this admission: 01/10/19 - Critical Care Critical Care patient: No
--- NOTE | 2019-01-10 11:56 | PN ---
Progress Note, Physician History of Present Illness: Pt states she feels better. Pain in LE/back controlled. Had temp of 99F but denies chills, SOB, abd pain/n/v/d, dysuria. - Current Medication List Current Medications: Active Medications Acetaminophen (Tylenol -) 650 mg PO Q6H PRN PRN Reason: PAIN LEVEL 1-5 Last Admin: 01/10/19 10:31 Dose: 650 mg Docusate Sodium (Colace -) 300 mg PO HS [facility] Last Admin: 01/09/19 21:24 Dose: Not Given Gabapentin (Neurontin -) 300 mg PO BID [facility] Last Admin: 01/10/19 09:19 Dose: 300 mg Heparin Sodium (Porcine) (Heparin -) 5,000 unit SQ BID [facility] Last Admin: 01/10/19 09:18 Dose: 5,000 unit Insulin Aspart (Novolog Vial Sliding Scale -) 1 vial SQ [facility]; Protocol Last Admin: 01/10/19 11:29 Dose: 2 units Oxycodone/Acetaminophen (Percocet 5/325 -) 1 combo PO Q6H PRN PRN Reason: PAIN LEVEL 6-10 Pantoprazole Sodium (Protonix -) 20 mg PO DAILY [facility] Last Admin: 01/10/19 09:19 Dose: 20 mg Polyethylene Glycol (Miralax (For Daily Use) -) 17 gm PO BID [facility] Last Admin: 01/10/19 09:18 Dose: 17 grams Triamterene/HCTZ (Dyazide 25/37.5mg) 1 cap PO DAILY [facility] Last Admin: 01/10/19 09:18 Dose: 1 cap - Objective Vital Signs: Vital Signs Temperature 99.0 F 01/10/19 10:00 Pulse Rate 80 01/10/19 10:00 Respiratory Rate 18 01/10/19 10:00 Blood Pressure 122/57 L 01/10/19 10:00 O2 Sat by Pulse Oximetry (%) 97 01/10/19 10:00 Constitutional: Yes: No Distress, Calm Cardiovascular: Yes: Regular Rate and Rhythm Respiratory: Yes: Regular Gastrointestinal: Yes: Normal Bowel Sounds, Soft Wound/Incision: Yes: Steri Strips, Dressing Dry and Intact Labs: CBC, BMP 01/10/19 08:00 01/10/19 08:00 INR, PTT INR 1.16 (0.82-1.09) 01/07/19 17:10 Problem List - Problems (1) History of spinal surgery Code(s): Z98.890 - OTHER SPECIFIED POSTPROCEDURAL STATES (2) Intractable back pain Code(s): M54.9 - DORSALGIA, UNSPECIFIED (3) Spondylolisthesis at L4-L5 level Code(s): M43.16 - SPONDYLOLISTHESIS, LUMBAR REGION Assessment/Plan Back Pain s/p L4-L5 TLIF/revision -- minimal temp elevation, wound site without drainage/erythema/tenderness/ induration, continue monitor -- At this time will continue monitor off antibiotics -- Orthopedic f/u
[2019-01-10] MEDS: DOCUSATE SODIUM 100 MG CAPSULE (FP) PO SCH (22:03)
[2019-01-11] MEDS: ACETAMINOPHEN 325 MG TABLET (FP) PO PRN ×4 (03:00→21:35)
[2019-01-11] MEDS: INSULIN SLIDING SCALE (NOVOLOG) 1 VIAL SQ SCH ×4 (06:41→22:13)
[2019-01-11 08:28] LABS: BASO % 0.5 % (0-2.0); EOS % 5.8 % (0-4.5); HEMATOCRIT 37.5 % (32.4-45.2); HEMOGLOBIN 12.5 GM/dl (10.7-15.3); LYMPH % 39.4 % (8-40); MCHC 33.4 g/dl (32.0-36.0); MEAN CELL VOLUME 92.8 fl (80-96); MEAN PLT VOLUME 8.4 fl (7.5-11.1); MONO % 14.9 % (3.8-10.2); NEUT % 39.4 % (42.8-82.8); PLATELET COUNT 330 K/MM3 (134-434); RBC 4.04 M/mm3 (3.60-5.2); RDW 12.3 % (11.6-15.6); WHITE BLOOD COUNT 5.5 K/mm3 (4.0-10.8)
[2019-01-11 08:37] LABS: ALBUMIN 2.9 g/dl (3.4-5.0); ALK PHOS 42 U/L (45-117); ANION GAP 10 MMOL/L (8-16); BILIRUBIN,TOTAL 0.9 mg/dl (0.2-1); BLOOD UREA NITROGEN 14 mg/dl (7-18); CALCIUM 8.9 mg/dl (8.5-10); CHLORIDE 99 mmol/L (98-107); CO2 28 mmol/L (21-32); CREATININE 0.7 mg/dl (0.55-1.3); GLUCOSE,RANDOM 161 mg/dl (74-106); MAGNESIUM 2.3 mg/dL (1.8-2.4); POTASSIUM 4.4 mmol/L (3.5-5.1); SGOT/AST 15 U/L (15-37); SGPT/ALT 18 U/L (13-61); SODIUM 137 mmol/L (136-145); TOT PROT 5.9 g/dl (6.4-8.2)
[2019-01-11] MEDS ORDERED: PT OWN MED DRAWER 7, Y5N ONE (09:26)
[2019-01-11] MEDS: HEPARIN NA (PORCINE) 5,000 UNITS/ML 1ML VIAL SQ SCH ×2 (09:48→21:34)
[2019-01-11] MEDS: GABAPENTIN 300 MG CAPSULE (FP) PO SCH ×2 (09:49→21:34)
[2019-01-11] MEDS: TRIAMTERENE AND HCTZ - 37.5 MG/25 MG CAPSULE PO SCH (09:49)
[2019-01-11] MEDS: POLYETHYLENE GLYCOL 3350 119 GM BTL PO SCH ×2 (09:49→21:35)
[2019-01-11] MEDS: PANTOPRAZOLE 20 MG TABLET (FP) PO SCH (09:50)
[2019-01-11] MEDS ORDERED: DEXAMETHASONE SOD PHOSPHATE 10 MG/1 ML VIAL IVPB ONE (13:30)
--- NOTE | 2019-01-11 14:59 | DS ---
Physical Exam: SUBJECTIVE: Patient seen and examined at bedside. Two daughters present. Patient states she has a little back pain. OBJECTIVE: Vital Signs Period Temp Pulse Resp BP Sys/Rodriguez Pulse Ox Last 24 Hr 98.2 F-99.0 F 77-87 18-20 124-144/50-75 95-98 PHYSICAL EXAM GENERAL: The patient is awake, alert, and fully oriented, in no acute distress. LUNGS: Breath sounds equal, clear to auscultation bilaterally HEART: Regular rate and rhythm, S1, S2 ABDOMEN: Soft, nontender, nondistended EXTREMITIES: 2+ pulses, warm, well-perfused, no edema. NEUROLOGICAL: Cranial nerves II through XII grossly intact. Normal speech. Moving all extremities freely, positions easily in chair. MUSCULOSKELTAL: Healed surgical scar mid-lumbar, no bleeding, no exudate, no erythema LABS Laboratory Results - last 24 hr 01/10/19 01/10/19 01/11/19 16:14 22:09 06:24 WBC RBC Hgb Hct MCV MCH MCHC RDW Plt Count MPV Absolute Neuts (auto) Neutrophils % Lymphocytes % Monocytes % Eosinophils % Basophils % Sodium Potassium Chloride Carbon Dioxide Anion Gap BUN Creatinine Creat Clearance w eGFR POC Glucometer 164 181 174 Random Glucose Calcium Magnesium Total Bilirubin AST ALT Alkaline Phosphatase Total Protein Albumin 01/11/19 01/11/19 01/11/19 07:00 07:00 11:04 WBC 5.5 RBC 4.04 Hgb 12.5 Hct 37.5 MCV 92.8 MCH 31.0 MCHC 33.4 RDW 12.3 Plt Count 330 MPV 8.4 Absolute Neuts (auto) 2.2 Neutrophils % 39.4 L Lymphocytes % 39.4 Monocytes % 14.9 H Eosinophils % 5.8 H Basophils % 0.5 Sodium 137 Potassium 4.4 Chloride 99 Carbon Dioxide 28 Anion Gap 10 BUN 14 Creatinine 0.7 Creat Clearance w eGFR > 60 POC Glucometer 138 Random Glucose 161 H Calcium 8.9 Magnesium 2.3 Total Bilirubin 0.9 AST 15 ALT 18 Alkaline Phosphatase 42 L Total Protein 5.9 L Albumin 2.9 L HOSPITAL COURSE: Date of Admission:01/10/19 Date of Discharge: 01/11/19 Pre hospital course 83 year old female w/ recent spinal surgery- L4-5 01/03 with revison the next day , J[facility] from [facility] nursing facility to hospital for increasing back pain radiating down left leg. Pt sent by neurosurgeon for pain control and MRI. Pt stated since her surgeries she has had severe back pain w/ left leg radiation preventing her from ambulating and preventing her from getting out of bed to urinate. She denied any fevers or discharge from surgery site. ER course (1) CT of spine (2) toradol, decadron, tylenol Subsequent hospital course 83 year-old female with a PMH significant for HLD, Type II NIDDM, GERD, s/p L4- L5 TLIF with revision. L4-L5 TLIF with revision --12/31 L4-L5 transforaminal lumbar interbody fusion/instrumentation (Alexandro) --01/01 revision of left L4 pedicle screw --01/04 discharge to [facility] --01/07 re-admitted [facility] --01/07 CT LS: interval development of small amount of air/gas at the site of a partial left L4-L5 facetectomy, postsurgical change v. infection --01/08 MRI LS: (1) ellipitical-shaped bony denisty is seen within the left posterolateral aspect of the central spinal canal at the L4 level; (2) small osseous fragment within the left L5 lateral recess which abuts the L5 nerve root ; (3) possible intrathecal adhesed nerve roots at L5; (4) mild concentric epidural soft tissue enhancement at L4 and L5 Patient remained afebrile without leukocytosis during hospital stay and was observed off antibiotics. Pain was managed with PO meds. On 01/11 surgery made the decision that further surgery is not warranted at this time. Dexamethasone 8mg IVPB was administered. Minutes to complete discharge: 35 Discharge Summary Reason For Visit: INTRACTABLE BACK PAIN Current Active Problems History of spinal surgery (Acute) Intractable back pain (Acute) Condition: Stable - Instructions Diet, Activity, Other Instructions: The patient needs to be seen by Dr. Mc, her surgeon, in two weeks. Referrals: Zacairas Mc MD [Staff Physician] - 2 Weeks Disposition: HOME - Home Medications Comprehensive Discharge Medication List: Ambulatory Orders Gabapentin [Neurontin -] 300 mg PO BID 12/25/18 Glimepiride 1 each PO DAILY 12/25/18 Triamterene/Hydrochlorothiazid [Triamterene-Hctz 37.5-25 mg Tb] 1 each PO DAILY 12/31/18 Acetaminophen [Tylenol .Regular Strength -] 650 mg PO Q8H PRN 01/07/19 Gabapentin 600 mg PO HS 01/07/19 Morphine *Sr* [Ms Contin -] 15 mg PO Q12H 01/07/19 Omeprazole Magnesium [Prilosec Otc] 20 mg PO DAILY 01/07/19 Oxycodone HCl 10 mg PO Q6H PRN 01/07/19 Oxycodone HCl 10 mg PO TID 01/07/19 This patient is new to me today: No Emergency Visit: Yes ED Registration Date: 01/10/19 Care time: The patient presented to the Emergency Department on the above date and was hospitalized for further evaluation of their emergent condition. Critical Care patient: No - Discharge Referral Referred to [facility] No
--- NOTE | 2019-01-11 15:59 | PN ---
Progress Note, Physician History of Present Illness: doing well no issues continues to have pain ortho seeing the patient - Current Medication List Current Medications: Active Medications Acetaminophen (Tylenol -) 650 mg PO Q6H PRN PRN Reason: PAIN LEVEL 1-5 Last Admin: 01/11/19 15:25 Dose: 650 mg Docusate Sodium (Colace -) 300 mg PO HS [facility] Last Admin: 01/10/19 22:03 Dose: 300 mg Gabapentin (Neurontin -) 300 mg PO BID [facility] Last Admin: 01/10/19 22:03 Dose: 300 mg Heparin Sodium (Porcine) (Heparin -) 5,000 unit SQ BID [facility] Last Admin: 01/11/19 09:48 Dose: Not Given Insulin Aspart (Novolog Vial Sliding Scale -) 1 vial SQ [facility]; Protocol Last Admin: 01/11/19 11:09 Dose: Not Given Oxycodone/Acetaminophen (Percocet 5/325 -) 1 combo PO Q6H PRN PRN Reason: PAIN LEVEL 6-10 Pantoprazole Sodium (Protonix -) 20 mg PO DAILY [facility] Last Admin: 01/11/19 09:50 Dose: 20 mg Polyethylene Glycol (Miralax (For Daily Use) -) 17 gm PO BID [facility] Last Admin: 01/11/19 09:49 Dose: Not Given Triamterene/HCTZ (Dyazide 25/37.5mg) 1 cap PO DAILY [facility] Last Admin: 01/10/19 09:18 Dose: 1 cap - Objective Vital Signs: Vital Signs Temperature 99.0 F 01/11/19 14:13 Pulse Rate 87 01/11/19 14:13 Respiratory Rate 18 01/11/19 14:13 Blood Pressure 144/52 L 01/11/19 14:13 O2 Sat by Pulse Oximetry (%) 95 01/11/19 14:13 Constitutional: Yes: No Distress, Calm Cardiovascular: Yes: Regular Rate and Rhythm Respiratory: Yes: Regular, CTA Bilaterally Gastrointestinal: Yes: Normal Bowel Sounds, Soft Musculoskeletal: Yes: Back Pain, Other Neurological: Yes: Alert, Oriented Psychiatric: Yes: Alert, Oriented Labs: CBC, BMP 01/11/19 07:00 01/11/19 07:00 INR, PTT INR 1.16 (0.82-1.09) 01/07/19 17:10 Assessment/Plan 83 year-old female with a PMH significant for HLD, Type II NIDDM, GERD, s/p L4- L5 TLIF with revision. Problem List - Problems (1) History of spinal surgery Code(s): Z98.890 - OTHER SPECIFIED POSTPROCEDURAL STATES (2) Intractable back pain Code(s): M54.9 - DORSALGIA, UNSPECIFIED (3) Spondylolisthesis at L4-L5 level Code(s): M43.16 - SPONDYLOLISTHESIS, LUMBAR REGION Assessment/Plan Back Pain s/p L4-L5 TLIF/revision -- minimal temp elevation, wound site without drainage/erythema/tenderness/ induration, continue monitor -- At this time will continue monitor off antibiotics -- Orthopedic f/u
--- NOTE | 2019-01-11 16:15 | PN ---
Progress Note (short form) - Note Progress Note: Patient is doing better today She is only taking Tylenol for her pain She has minimal pain in her left leg She has 4/5 strength in her left DF, EHL, and PF I had a long discussion with the family and the patient re:need for surgery We discussed the CT scan and MRI findings At this point the family would like to defer surgery Will D/C to rehab and F/U as outpatient
[2019-01-11] MEDS: DOCUSATE SODIUM 100 MG CAPSULE (FP) PO SCH (21:34)
[2019-01-12 06:33] VITALS: TEMP 98.7
[2019-01-12] MEDS: INSULIN SLIDING SCALE (NOVOLOG) 1 VIAL SQ SCH ×2 (07:15→12:31)
[2019-01-12] MEDS ORDERED: PT OWN MED DRAWER 7, Y5N ONE (09:11)
[2019-01-12] MEDS: GABAPENTIN 300 MG CAPSULE (FP) PO SCH (10:08)
[2019-01-12] MEDS: PANTOPRAZOLE 20 MG TABLET (FP) PO SCH (10:08)
[2019-01-12] MEDS: POLYETHYLENE GLYCOL 3350 119 GM BTL PO SCH ×2 (10:08→10:11)
[2019-01-12] MEDS: TRIAMTERENE AND HCTZ - 37.5 MG/25 MG CAPSULE PO SCH (10:08)
[2019-01-12] MEDS: HEPARIN NA (PORCINE) 5,000 UNITS/ML 1ML VIAL SQ SCH (10:08)
[2019-01-12 10:09] VITALS: BP 142/64; PULSE 89
[2019-01-12] MEDS: ACETAMINOPHEN 325 MG TABLET (FP) PO PRN (12:30)
== END 2019-01-12 13:16 | disposition home or self-care (01) | DRG 552 ==
LOC: FER 15:55 → FM/S 20:35 → OBSVTOIN 01-10 10:15
PROVIDERS: ADMIT Orthopaedic Surgery Orthopaedic Surgery of the Spine; ATTEND Orthopaedic Surgery Orthopaedic Surgery of the Spine
DX: M54.9 Dorsalgia, unspecified (principal); K21.9 Gastro-esophageal reflux disease without esophagitis; E11.9 Type 2 diabetes mellitus without complications; E78.5 Hyperlipidemia, unspecified; K59.00 Constipation, unspecified; Z79.84 Long term (current) use of oral hypoglycemic drugs; M43.16 Spondylolisthesis, lumbar region
CPT/HCPCS: 36415; 71045-TC-FY; 72131-TC; 72149-TC; 80048; 80053; 81003; 82962; 83735; 85025; 85027; 85610; 85730; 86850; 86900; 86901; 87086; 93005; 97116-GP; 97162-GP; 99284-25; C1887; G0378; J0131; J1100; J1644

== ENCOUNTER 2019-03-01 08:28 | Day surgery (SDC) | payer OTHER ==
[2019-02-25 09:25] VITALS: BMI 29.9
--- NOTE | 2019-03-01 14:14 | HP ---
History & Physical Update - History History: No Change - Physical Physical: No Change - Assessment Assessment: No Change - Plan Plan: No Change
[2019-03-01] MEDS ORDERED: BUPIVACAINE HCL/PF (5 MG/ML) 30 ML VIAL IJ ONE (14:23)
[2019-03-01] MEDS ORDERED: MIDAZOLAM HCL 2 MG/2 ML SINGLE DOSE VIAL ONE ×3 (14:23→15:13)
[2019-03-01] MEDS ORDERED: methylPREDNISolone ACET (DEPO) 40 MG/1 ML VIAL ONE (14:38)
[2019-03-01] MEDS ORDERED: THROMBIN (RECOMBINANT) 5,000 UNIT VIAL TP ONE (14:38)
[2019-03-01] MEDS ORDERED: LIDOCAINE 1%/EPI 1:100000 (20 ML MULTI DOSE VIAL) ONE (14:38)
--- NOTE | 2019-03-01 16:55 | OP ---
Operative Note - Note: Operative Date: 03/01/19 Pre-Operative Diagnosis: spinal stenosis, bone fragment Operation: laminectomy of L3-L4 Surgeon: Zacarias Mc Barrel Racer: Hodan Braswell Anesthesiologist/EMTS: Ki Thayer Anesthesia: Spinal Estimated Blood Loss (mls): 20 Fluid Volume Replaced (mls): 800 Operative Report Dictated: Yes
[2019-03-01] MEDS ORDERED: oxyCODONE HCL 5 MG TABLET PO PRN ×2 (16:56)
[2019-03-01] MEDS ORDERED: ONDANSETRON 4 MG/2 ML VIAL IVPUSH PRN (16:56)
--- NOTE | 2019-03-01 16:56 | SURG ---
Surgery [employer] Engineer Note [employer] Engineer: Hodan Braswell PA-C Date of Service: 03/01/19 Diagnosis: spinal stenosis, bone fragment Procedure: laminectomy of L3-L4 I was present for the entirety of the operative procedure. For further detail, please refer to operative report. Visit type - Case Type Case Type: Scheduled - Emergency Emergency Visit: No - New patient This patient is new to me today: Yes Date on this admission: 03/01/19
[2019-03-01] MEDS ORDERED: LACTATED RINGERS SOLUTION 1,000 ML IV SCH (17:00)
[2019-03-01] MEDS ORDERED: SODIUM CHLORIDE 1,000 ML IV SCH (17:15)
[2019-03-01] MEDS ORDERED: ACETAMINOPHEN INJECTION 100 ML IVPB ONE (17:40)
[2019-03-01] MEDS ORDERED: ACETAMINOPHEN 1000 MG/100 ML VIAL (NON FORMULARY) IVPB ONE (18:00)
--- NOTE | 2019-03-01 21:14 | OP ---
DATE OF OPERATION: 03/01/2019 PREOPERATIVE DIAGNOSIS: Spinal stenosis, L3-L4, L4-L5. POSTOPERATIVE DIAGNOSIS: Spinal stenosis, L3-L4, L4-L5. PROCEDURE PERFORMED: Revision laminectomy, L3-L4, L4-L5. SURGEON: Zacarias Mc MD BACK SEWER: AARON Harmon ESTIMATED BLOOD LOSS: 50 mL. INTRAVENOUS FLUIDS: Per Anesthesia. ANESTHESIA: Spinal/TLIF. COMPLICATIONS: There were none. DISPOSITION: Patient brought to the PACU in stable condition. INDICATION FOR SURGERY: The patient is an 83-year-old female who had undergone a previous TLIF. She had a revision because of a misplaced screw. She continued to have some pain in her left leg. X-rays and MRI were completed, which noted that she had spinal stenosis at L3-L4 and L4-L5. I had a long discussion with her regarding options. Risks, benefits, and alternatives of surgical versus nonsurgical treatment were discussed and the patient consented to have surgery. PROCEDURE: Patient brought to the operating room by the anesthesia staff. After appropriate patient identification was performed, spinal anesthesia was given. A TLIF block was also given. The patient was able to position self prone onto the OR table with all areas of bony prominences well-padded. At this time, 2 needles were placed into the back to july off the L3 to L5 segments; x-rays taken to confirm this was correct. [place] were removed and 10 mL of lidocaine with epinephrine was injected. Her back was then prepped and draped in a sterile manner. A timeout was called and an incision was made from the top of L3 down to the bottom of L5. Dissection was carried down to the fascia. The fascia was split open at this time and appropriate retractor was then placed in. The spinal needle was placed onto the L3 lamina to july of the L3-L4 level; x-rays taken to confirm this was correct. Needle was removed and the between L3-L4 and L4-L5 was removed. The spinous process of L4 was removed. A bur was used to remove the lamina. A complete decompression was performed, such that by the end of the procedure, the L4 and L5 nerve roots were pretty well-decompressed. It should be noted that there was a fragment of bone on the left side, which was removed complete. By the end, the nerve root appeared to be well-decompressed. All bleeding was well-controlled at this time. Steroids were placed over the nerve root, FloSeal was placed over that. The fascia was closed with a No. 1 Vicryl suture, subcutaneous tissue closed with 2-0 Vicryl suture, skin was closed with 3-0 Monocryl suture. Dermabond was applied, Steri-Strips were applied, sterile dressing was applied. Patient was placed supine on the OR bed and brought to the PACU in stable condition. Chyna PARKER/[id number]
[2019-03-01] MEDS: POLYETHYLENE GLYCOL 3350 119 GM BTL PO SCH (21:22)
[2019-03-01] MEDS: GABAPENTIN 300 MG CAPSULE (FP) PO SCH (21:22)
[2019-03-01] MEDS ORDERED: GABAPENTIN 300 MG CAPSULE (FP) PO SCH (22:00)
[2019-03-01] MEDS ORDERED: DOCUSATE SODIUM 100 MG CAPSULE (FP) PO SCH (22:00)
[2019-03-02] MEDS: ACETAMINOPHEN 325 MG TABLET (FP) PO SCH ×2 (05:35→06:31)
[2019-03-02] MEDS ORDERED: PT OWN MED DRAWER 7, Y5N ONE ×2 (06:00→09:50)
[2019-03-02] MEDS ORDERED: GLIMEPIRIDE 1 MG TABLET (FP) PO SCH (07:00)
--- NOTE | 2019-03-02 08:54 | PN ---
Progress Note (short form) - Note Progress Note: ANESTHESIA POSTOP 83 YO female POD#1 s/p lumbar laminectomy, spinal anesthesia and PNB Patient sitting in chair. Reports no pain. Tolerating PO and using IS. She is very happy with her anesthesia VSS, afebrile Encouraged patient to participate in PT. No anesthetic complications. Continue current care.
--- NOTE | 2019-03-02 09:35 | PN ---
Progress Note (short form) - Note Progress Note: POD#1 PT seen and examined this am. OOB to commode and the restroom this am without any pain. She states that her left leg pain has improved. No CP or SOB. Voiding without difficulty. As per the nursing staff her dressing was changed last pm because of bleeding. Vital Signs Period Temp Pulse Resp BP Sys/Rodriguez Pulse Ox Last 24 Hr 97.1 F-99.6 F 71-96 16-19 104-135/45-79 96-100 GEN: A&0 x3 NAD CV: RRR Lungs: CTA b/l anteriorly Back: dressing changed this am. No active bleeding. Steri strips in place. No swelling or ecchymosis. Reapplied clean, dry dressing with tegaderm. RLE: 5/5 dorsi/plantar flexion LLE: 5/5 plantar flexion 4/5 dorsiflexion. +2 dp pulse. No calf tenderness or swelling noted b/l A/P: 83 yo female s/p Laminectome of L3-4 for decompression/bone fragment removal Pt left leg pain symptoms improved Physical therpay eval for possible home/outpt PT as recommended Plan for discharge today Monitor dressing for further bleeding D/w Dr. Mc and her agrees with the care plan
[2019-03-02] MEDS: GABAPENTIN 300 MG CAPSULE (FP) PO SCH (09:51)
[2019-03-02] MEDS: POLYETHYLENE GLYCOL 3350 119 GM BTL PO SCH (09:52)
[2019-03-02] MEDS ORDERED: PANTOPRAZOLE 20 MG TABLET (FP) PO SCH (10:00)
[2019-03-02] MEDS ORDERED: PATIENT'S OWN MEDICATION (NON-FORMULARY) (Triamterene/Hydrochlorothiazid [Triamterene-Hctz PO SCH (10:00)
[2019-03-02] MEDS ORDERED: TRIAMTERENE AND HCTZ - 37.5 MG/25 MG CAPSULE PO SCH (10:00)
[2019-03-02 10:05] VITALS: BP 115/59; PULSE 88; TEMP 98.2
[2019-03-02] MEDS ORDERED: ATORVASTATIN CA 40 MG TABLET (FP) PO SCH (22:00)
[2019-03-03] MEDS ORDERED: GLIMEPIRIDE 2 MG TABLET (FP) PO SCH (07:00)
== END 2019-03-02 11:45 | disposition home health service (06) ==
LOC: FASU 08:28 → FASUSAT 08:28 → FM/S 18:19 → FASUSAT 03-02 11:45
PROVIDERS: ATTEND Orthopaedic Surgery Orthopaedic Surgery of the Spine
PROC: 01NB0ZZ Release Lumbar Nerve, Open Approach (ICD-10-PCS; principal; 2019-03-01 15:33)
DX: M48.061 Spinal stenosis, lumbar region without neurogenic claudication (principal)
CPT/HCPCS: 72100-TC-FY; 76000-TC-FY; 82962; 94760; 97116-GP; 97161-GP; J0131